=== PATIENT | female | born 1955 | race Caucasian/White ===

== ENCOUNTER → 2021-09-02 16:10 | Outpatient (CLI) | payer BC, SELFPAY ==
--- NOTE | 2021-09-02 16:17 | XR_ITS ---
PROCEDURE INFORMATION: Exam: XR Lumbosacral Spine Exam date and time: 09/02/2021 4:25 PM Age: 66 years old Clinical indication: Low back pain and sciatica; Left TECHNIQUE: Imaging protocol: XR of the lumbosacral spine. Views: 2 or 3 views. COMPARISON: No relevant prior studies available. FINDINGS: Bones/joints: There is no evidence of acute fracture.There is no evidence of malalignment or dislocation. Anterior bridging osteophytes L2 through L4. Intervertebral disc space narrowing L5/S1 consistent with degenerative disc disease.. Soft tissues: Unremarkable. IMPRESSION: 1. There is no evidence of acute fracture.There is no evidence of malalignment or dislocation. 2. Intervertebral disc space narrowing L5/S1 consistent with degenerative disc disease..
--- NOTE | 2021-09-02 16:17 | XR_ITS ---
PROCEDURE INFORMATION: Exam: XR Bilateral Sacroiliac Joints Exam date and time: 09/02/2021 4:25 PM Age: 66 years old Clinical indication: Pain; Lumbago; With sciatica; Left; Additional info: Low back pain TECHNIQUE: Imaging protocol: XR Bilateral XR of the sacroiliac joints. Views: 3 or more views. COMPARISON: No relevant prior studies available. FINDINGS: Bones/joints: Sclerosis and joint space narrowing in the sacroiliac joints consistent with degenerative changes. There is no evidence of acute fracture.There is no evidence of malalignment or dislocation. Soft tissues: Normal. IMPRESSION: 1. Sclerosis and joint space narrowing in the sacroiliac joints consistent with degenerative changes. 2. There is no evidence of acute fracture.There is no evidence of malalignment or dislocation.
== END ==
PROVIDERS: PCP Physician Assistant; Visit Provider Physician Assistant
DX: M54.50 Low back pain, unspecified (principal)
CPT/HCPCS: 72100; 72202

== ENCOUNTER 2025-02-23 12:48 | Outpatient (CLI) | payer MEDICARE, OTHER, SELFPAY ==
--- OUTSIDE RECORDS SUMMARY | 2025-02-06 09:00 | XMS_ITS | Encounter Summary ---
[facility] Organization [facility] Address [address] [place] [address] Care Team Providers Care Professional Model Name Role Phone Tabitha Collins Primary Care Provider [phone] Reason for Visit * Reason Comments Post-op Encounter Details Date Type Department Care Team (Late st Contact Info) Description 02/06/2025 10:00 AM EDT Office Visit [facility] [address] [phone] Darien Fleming MD [address] [place] [address] S/P lumbar discectomy (Primary Dx); Lumbar disc herniation with radiculopathy Social History Tobacco Use Types Packs/Day Years Used Date Smoking Tobacco: Never Passive Smoke Exposure: Never Smokeless Tobacco: Never Tobacco Cessation:Counseling Given: No Alcohol Use Standard Drinks/Week Comments Not Currently 0 (1 standard drink = 0.6 oz pur e alcohol) Abuse Screen Answer Date Recorded Feels Unsafe at Home or Work/School no 12/04/2024 Feels Threatened by Someone no 11/21 Does Anyone Try to Keep You From Having Contact with Others or Doing Things Outside Your Home? no 12/04/2024 Physical Signs of Abuse Present no 12/04/2024 Housing Stability Answer Date Recorded Current Living Arrangements home 11/21 Potentially Unsafe Housing Conditions Not on tisha e 12/04/2024 Disabilities Answer Date Recorded Difficulty Concentrating, Remembering or Making Decisions no 12/04/2024 Difficulty Managing Errands Independently no 12/04/2024 Education Answer Date Recorded Help with school or training? Not on file Preferred Language Swiss 11/28/2024 Comments No Sex and Gender Information Value Date Recorded Sex Assigned at Female 11/05/2024 10:24 AM EDT Legal Sex Female 12:49 PM EDT Gender Identity Not on file Sexual Orientation Not on file documented as of this encounter Last Filed Vital Signs Vital Sign Reading Time Taken Comments Blood Pressure - - Pulse - - Temperature 36.5 C (97.7 F) 02/06/2025 10:08 AM EDT Respiratory Rate - - Oxygen Saturation - - Inhaled Oxygen Concentration - - Weight 82.1 kg (181 lb 1.6 oz) 02/06/2025 10:08 AM EDT Height 157.5 cm (5' 2 ) 02/06/2025 10:08 AM EDT Body Mass Index 33.12 02/06/2025 10:08 AM EDT documented in this encounter Progress Notes * Darien Fleming MD - 02/06/2025 10:00 AM EDT Patient: Delilah Garcia : 1955 Primary Care Provider: Tabitha Collins PA Requesting Provider: As above History Chief Complaint: Left lower extremity pain. 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 She did very well. More recently she returned to our clinic with recurrent symptoms involving the back and left leg. Preoperative studies demonstrated recurrent disc herniation on the left at L5-S1. As such on 12/04/2024 she presented for redoleft L5-S1 discectomy. Her leg pain is absent. She harbors some very modest low back pain. She has been increasing her activity. Review of Systems Constitutional: Negative for activity change, appetite change, chills, diaphoresis, fatigue, fever and unexpected weight change. HENT: Negative for congestion, dental problem, drooling, ear discharge, ear pain, facial swelling, hearing loss, mouth sores, nosebleeds, postnasal drip, rhinorrhea, sinus pressure, sinus pain, sneezing, sore throat, tinnitus, trouble swallowing and voice change. Eyes: Negative for photophobia, pain, discharge, redness, itching and visual disturbance. Respiratory: Negative for apnea, cough, choking, chest tightness, shortness of breath, wheezing andstridor. Cardiovascular: Negative for chest pain, palpitations and leg swelling. Gastrointestinal: Negative for abdominal distention, abdominal pain, anal bleeding, blood in stool,constipation, diarrhea, nausea, rectal pain and vomiting. Endocrine: Negative for cold intolerance, heat intolerance, polydipsia, polyphagia and polyuria. Genitourinary: Negative for decreased urine volume, difficulty urinating, dysuria, enuresis, flank pain, frequency, genital sores, hematuria and urgency. Musculoskeletal: Negative for arthralgias, back pain, gait problem, joint swelling, myalgias, neck pain and neck stiffness. Skin: Negative for color change, pallor, rash and wound. Allergic/Immunologic: Negative for environmental allergies, food allergies and immunocompromised state. Neurological: Negative for dizziness, tremors, seizures, syncope, facial asymmetry, speech difficulty, weakness, light-headedness, numbness and headaches. Hematological: Negative for adenopathy. Does not bruise/bleed easily. Psychiatric/Behavioral: Negative for agitation, behavioral problems, confusion, decreased concentration, dysphoric mood, hallucinations, self-injury, sleep disturbance and suicidal ideas. The patientis not nervous/anxious and is not hyperactive. The patient's past medical history, past surgical history, family history, and social history have been reviewed at length in the electronic medical record. Physical Exam: Temp 97.7 ??F (36.5 ??C) (Temporal) Ht 157.5 cm (62 ) Wt 82.1 kg (181 lb 1.6 oz) BMI 33.12 kg/m?? Her incision looks great. She moves about in a spry fashion. Medical Decision Making Diagnosis: Recurrent left L5-S1 disc herniation. Treatment Options: Ms. Garcia is doing quite well. She will steadily increase her activity. She will follow-up with neurosurgery on an as needed basis. Scribed for Darien Fleming MD by Digna Garcia CMA on 02/06/2025 10:13 EDT I, Dr. Fleming, personally performed the services described in the documentation, as scribed in my presence, and it is both accurate and complete. documented in this encounter Plan of Treatment Not on file documented as of this encounter Visit Diagnoses Diagnosis S/P lumbar discectomy- Primary Other postprocedural status Lumbar disc herniation with radiculopathy Displacement of lumbar intervertebral disc without myelopathy documented in this encounter Care Teams Professional Model Relationship Specialty Start Date End Date Tabitha Collins PA [address] [facility] [place] [address] PCP - General Physician Analytical Chemist 10/08/24 documented as of this encounter
--- OUTSIDE RECORDS SUMMARY | 2025-02-17 07:05 | XMS_ITS | Encounter Summary ---
Author Organization [facility] Address [address] [place] [address] Care Team Providers Care Orchid Hand Name Role Phone Malaika Crenshaw Primary Care Provider [phone] Encounter Details Date Type Department Care Team (Late st Contact Info) Description 02/17/2025 8:05 AM EDT Ancillary Procedure [facility] [address] [place] [address] Social History Tobacco Use Types Packs/Day Years Used Date Smoking Tobacco: Never Passive Smoke Exposure: Never Smokeless Tobacco: Never Comments Unknown Sex and Gender Information Value Date Recorded Sex Assigned at Not on file Legal Sex Female 6:55 PM EDT Gender Identity Not on file Sexual Orientation Not on file documented as of this encounter Plan of Treatment Upcoming Encounters Date Type Department Care Team (Late st Contact Info) Description 08/18/2025 8:00 AM EDT Office Visit [facility] [address] [place] [phone] Mikel Hays MD [address] [address] documented as of this encounter Procedures Procedure Name Priority Date/Time Associated Diagnosis Comments AUTOMATED VISUAL FIELD, EXTENDED - OU - BOTH EYES Routine 02/17/2025 10:09 AM EDT Open angle with borderline findings, low risk, right eye documented in this encounter Results * Automated Visual Field, Extended - OU - Both Eyes (02/17/2025 10:09 AM EDT) Anatomical Region Laterality Modality Head Visual Field Narrative 02/17/2025 10:09 AM EDT Right Eye Threshold was 24-2. Strategy was FILIBERTO. Reliability was good. Findings include normal observations. Left Eye Threshold was 24-2. Strategy was FILIBERTO. Reliability was poor. Findings include normal observations, non-specific defects. Notes No evidence of glaucoma od; ? Os given reliability poor Mikel Hays MD OPH VISUAL FIELD Edited Resu lt - Final documented in this encounter Visit Diagnoses Not on filedocumented in this encounter Additional Health Concerns Assessment Noted Time A fall risk assessment has been complete d for the patient 02/17/2025 8:23 AM EDT A Body Mass Index follow-up plan has been documented for the patient 02/17/2025 10:18 AM EDT documented as of this encounter Care Teams Orchid Hand Relationship Specialty Start Date End Date Malaika Crenshaw PA [address] [place] [address] PCP - General 07/04/23 documented as of this encounter
--- OUTSIDE RECORDS SUMMARY | 2025-02-17 07:15 | XMS_ITS | Encounter Summary ---
Author Organization [facility] Address [address] [place] [address] Care Team Providers Care Hogshead Press Operator Name Role Phone Malaika Crenshaw Primary Care Provider [phone] Encounter Details Date Type Department Care Team (Late st Contact Info) Description 02/17/2025 8:15 AM EDT Office Visit [facility] [address] [place] [address] Mikel Hays MD [address] [address] Open angle with borderline findings, low risk, right eye (Primary Dx); Open angle with borderline findings, high risk, left; Myopia of both eyes; Regular astigmatism of both eyes; Presbyopia of both eyes Social History Tobacco Use Types Packs/Day Years Used Date Smoking Tobacco: Never Passive Smoke Exposure: Never Smokeless Tobacco: Never Comments Unknown Sex and Gender Information Value Date Recorded Sex Assigned at Not on file Legal Sex Female 6:55 PM EDT Gender Identity Not on file Sexual Orientation Not on file documented as of this encounter Miscellaneous Notes * Progress Notes - Mikel Hays MD - 02/17/2025 8:15 AM EDT Subjective HPI 69 yo f presents in clinic for a 6 month follow up for a VF 24-2, with a Hx of; Open angle with borderline findings, low risk, right eye Open angle with borderline findings, high risk, left Pt states vision is the OS is a little off, I am not for sure if something has changed with my glasses and it is a little different, blurry Pt notes she noticed the blurriness for the past couple of months. Pt denies pain, flashes and floaters, irritation (only time she notes irritation is when she is using the Duc an tonight) Drop compliant os--needs new Rx Last edited by Mikel Hays MD on 02/17/2025 10:13 AM. ROS Positive for: Eyes Negative for: Constitutional, Gastrointestinal, Neurological, Skin, Genitourinary, Musculoskeletal,HENT, Endocrine, Cardiovascular, Respiratory, Psychiatric, Allergic/Imm, Heme/Lymph Last edited by Chevy Mckeon on 02/17/2025 8:15 AM. Objective Base Eye Exam Visual Acuity (Snellen - Linear) Right Left Dist cc 20/20 -1 20/20 Correction: Glasses Tonometry (Goldmann Applanation, 8:45 AM) Right Left Pressure 16 17 Pupils Pupils APD Right PERRL None Left PERRL None Neuro/Psych Oriented x3: Yes Mood/Affect: Normal Slit Lamp and Fundus Exam External Exam Right Left External Normal Normal Slit Lamp Exam Right Left Lids/Lashes Normal for age Normal for age Conjunctiva/Sclera Normal Normal Cornea Clear and compact Clear and compact Anterior Chamber Deep and quiet Deep and quiet Iris Normal pupil size and shape Normal pupil size and shape Lens pigment on AC pigment on AC Vitreous Normal Normal Fundus Exam Right Left Disc No edema; no vascularization; good color (Lorenzo 78 d Lens) No edema; no vascularization; good color (Lorenzo 78 d Lens) C/D Ratio 0.4 0.55 Macula Normal reflex; without edema Normal reflex; without edema Vessels Perfused; no tortuosity or abnormality Perfused; no tortuosity or abnormality Refraction Wearing Rx Sphere Cylinder Lorraine Add Right -0.25 +0.25 178 +2.25 Left -0.75 +0.75 010 Age: 4yrs Type: PAL Manifest Refraction Sphere Cylinder Lorraine Dist VA Add Near VA Right -0.50 +0.50 015 20/20 +2.00 20/20 Left -1.00 +0.75 015 20/20 +2.00 20/20 Final Rx Sphere Cylinder Lorraine Dist VA Add Near VA Right -0.50 +0.50 015 20/20 +2.00 20/20 Left -1.00 +0.75 015 20/20 +2.00 20/20 Expiration Date: 02/17/2026 Assessment/Plan Assessment & Plan Open angle with borderline findings, low risk, right eye Orders: Automated Visual Field, Extended - OU - Both Eyes Open angle with borderline findings, high risk, left Myopia of both eyes Regular astigmatism of both eyes Presbyopia of both eyes Stable IOPs; continue timolol 0.5% bid os Disp spec Rx Rtc 6 mos ar/gl/mr/oct rnfl ou documented in this encounter Plan of Treatment Upcoming Encounters Date Type Department Care Team (Late st Contact Info) Description 08/18/2025 8:00 AM EDT Office Visit [facility] [address] [place] [address] Mikel Hays MD [address] [address] documented as of this encounter [...] Os given reliability poor Mikel Hays MD OPHTH VISUAL FIELD Edited Resu lt - Final documented in this encounter Visit Diagnoses Diagnosis Open angle with borderline findings, low risk, right eye- Primary Open angle with borderline findings, high risk, left Myopia of both eyes Regular astigmatism of both eyes Presbyopia of both eyes documented in this encounter Additional Health Concerns Assessment Noted Time A fall risk assessment has been complete d for the patient 02/17/2025 8:23 AM EDT A Body Mass Index follow-up plan has been documented for the patient 02/17/2025 10:18 AM EDT documented as of this encounter Care Teams Hogshead Press Operator Relationship Specialty Start Date End Date Malaika Crenshaw PA [address] [place] [address] PCP - General 07/04/23 documented as of this encounter
--- OUTSIDE RECORDS SUMMARY | 2025-02-17 09:58 | XMS_ITS | Encounter Summary ---
Author Organization [facility] Address [address] [place] [address] Care Team Providers Care Web Weaver Name Role Phone Tabitha Collins Primary Care Provider [phone] Reason for Referral * Diagnostic Imaging (Routine) - Closed Specialty Diagnoses / Procedures Referred By Contac t Referred To Contact Radiology Diagnoses Encounter for screening mammogram for breast cancer Procedures Mammo Screening Digital Tomosynthesis Bilateral With Tabitha Moody PA [address] [place] [phone] Phone: tel: fax: [address] [address] [place] [address] Phone: tel: Referral ID Status Reason Start Date Expiration Date Visits Re quested Visits Authorized [id number] Closed 12/02/2024 03/03/2026 1 1 Reason for Visit * Diagnostic Imaging (Routine) - Closed Specialty Diagnoses / Procedures Referred By Contac t Referred To Contact Radiology Diagnoses Encounter for screening mammogram for breast cancer Procedures Mammo Screening Digital Tomosynthesis Bilateral With Tabitha Moody PA [address] [place] [address] Phone: tel: fax: [facility] [address] [place] [phone] Phone: tel: Referral ID Status Reason Start Date Expiration Date Visits Re quested Visits Authorized [id number] Closed 12/02/2024 03/03/2026 1 1 Encounter Details Date Type Department Care Team (Latest Contact Info) Description 02/17/2025 10:58 AM EDT - 02/17/2025 11:59 PM EDT Hospital Encounter [address] [place] [address] Tabitha Collins PA [address] [place] [address] Encounter for screening mammogram for breast cancer Discharge Disposition: Home or Self Care Social History Tobacco Use Types Packs/Day Years Used Date Smoking Tobacco: Never Passive Smoke Exposure: Never Smokeless Tobacco: Never Alcohol Use Standard Drinks/Week Comments Not Currently [...] or training? Not on file Preferred Language Serbian 11/28/2024 Comments No Sex and Gender Information Value Date Recorded Sex Assigned at Female 11/05/2024 10:24 AM EDT Legal Sex Female 12:49 PM EDT Gender Identity Not on file Sexual Orientation Not on file documented as of this encounter Medications at Time of Discharge cetirizine (zyrTEC) 10 MG tablet Take 1 tablet by mouth Daily. desonide (DESOWEN) 0.05 % cream Apply 1 Application topically to the appropriate area as directed 2 (Two) Times a Day As Needed for Irritation. estradiol (MINIVELLE, VIVELLE-DOT) 0.05 MG/24HR patch Place 1 patch on the skin as directed by provider 1 (One) Time Per Week. Sunday08/04/2019 lisinopril (PRINIVIL,ZESTRI L) 10 MG tablet Take 1 tablet by mouth Daily. metoprolol succinate XL (TOPROL-XL) 50 MG 24 hr tablet Take 1 tablet by mouth Daily. 07/10/2019 simvastatin (ZOCOR) 40 MG tablet Take 1 tablet by mouth Every Night. 10/04/2019 timolol (TIMOPTIC) 0.5 % ophthalmic solution Administer 1 drop into the left eye 2 (Two) Times a Day. triamterene-hydr ochlorothiazide (MAXZIDE-25) 37.5-25 MG per tablet Take 1 tablet by mouth Daily. 07/28/2019 Wixela Inhub 250-50 MCG/ACT DISKUS 11/27/2024 documented as of this encounter Plan of Treatment Not on file documented as of this encounter Procedures Procedure Name Priority Date/Time Associated Diagnosis Comments MAMMO SCREENING DIGITAL TOMOSYNTHESIS BILATERAL W CAD Routine 02/17/2025 11:17 AM EDT Encounter for screening mammogram for breast cancer documented in this encounter Results * Mammo Screening Digital Tomosynthesis Bilateral With CAD (02/17/2025 11:17 AM EDT) Anatomical Region Laterality Modality Breast N/A Mammography 02/20/2025 8:47 AM EDT Impressions 02/20/2025 8:50 AM EDT No mammographic findings suspicious for malignancy. RECOMMENDATION: Continue annual screening mammography. BI-RADS CATEGORY 1, NEGATIVE. CAD was utilized. The standard false-negative rate of mammography is between 10% and 25%. Complex patterns or increased breast density will markedly elevate the false-negative rate of mammography. A letter, in lay terminology, with the results of this exam will be mailed to the patient. 02/20/2025 8:[address] Ana M Mcgowan MD on Narrative 02/20/2025 8:50 AM EDT BILATERAL SCREENING MAMMOGRAM WITH TOMOSYNTHESIS: HISTORY: The patient has no personal history or significant family history of breast cancer and no focal breast complaints at the time of screening mammography. TECHNIQUE: Bilateral CC and MLO low dose, full field digital mammographic images were obtained with tomosynthesis. COMPARISON: 02/12/2024, 12/22/2022, 12/21/2021, 11/02/2020, 10/20/2019, 09/25/2019, 06/10/2018 FINDINGS: There are scattered areas of fibroglandular density. The fibroglandular pattern is stable. There are no suspicious masses, worrisome calcifications, nonsurgical areas of architectural distortion, or other secondary signs of malignancy. Tabitha [facility] MAMMOGRAPHY ORDERABLES Final Result documented in this encounter Visit Diagnoses Diagnosis Encounter for screening mammogram for breast cancer documented in this encounter Care Teams Web Weaver Relationship Specialty Start Date End Date Tabitha Collins PA [address] [place] [address] PCP - General Physician Graduate Research Assistant 10/08/24 documented as of this encounter
--- NOTE | 2025-02-23 12:53 | XR_ITS ---
FINAL REPORT TECHNIQUE: Bone densitometry calculations of the lumbar spine and bilateral hips were obtained. CLINICAL HISTORY: SCREENING COMPARISON: None FINDINGS: Using L1-4, the bone mineral density of the spine is 0.966 g/cm2, corresponding to T-score of 0.2 and a Z score of 1.6. This is within the range of normal. Using the left hip, the bone mineral density of the femoral neck is 0.966 g/cm2, corresponding to a T-score of 0.2 and a Z-score of 1.6. This is within the range of normal. Using the right hip, the bone mineral density of the femoral neck is 0.766 g/cm?, corresponding to a T-score of -0.8 and a Z-score of 0.9. This is within the range of normal. NOTE: T-score: Standard deviation compared with peak bone mass of young adult mean. *Following the recommendations of the International Society of Bone densitometry, classification of hip BMD is based on the lower of two T-scores; total hip or femoral neck. IMPRESSION: 1. Bone mineral density of the lumbar spine within the range of normal. 2. Bone mineral density of the bilateral femoral necks within the range of normal. Reviewed, Interpreted and Dictated by Darlene Wyatt MD Transcribed by Manju Rivera Authenticated and [facility]
--- OUTSIDE RECORDS SUMMARY | 2025-02-23 12:53 | XMS_ITS | Continuity of Care Document ---
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 Plan of Treatment Reminders Order Date Submit Date Provider Last Modified By Organization Details Last Modified Time Details Appointments None record ed. Lab None record ed. Referral None record ed. Procedures None record ed. Surgeries None record ed. Imaging None record ed. Medication Orders None record ed. Patient TargetsNo targets recorded. Patient InstructionsNo instructions recorded. Reason for Referral None Reported. Results Created Date Observation Date Name Description Value Unit Range Abnormal Flag Note LastModifiedBy Organization Detail LastModifiedTime 02/21/2002/17/2025 MAMMO , scree le, bilat eral No observ ation record ed. [facility] [address], [place], [address], 02/20/2025 09:32:34 Result Notes None recorded. Problems Name Problem SNOMED Code Status Onset Date Resolution Date Notes Provider Name and Address Organization Details Recorded Time Mixed hyperlip idemia 654186581 Active 2020 Problem Code: E78.2; Problem Code Type: ICD-10; Not Available [facility] 22:03:49 Menopaus e present 173093449 Active 2020 Problem Code: N95.1; Problem Code Type: ICD-10; Not Available [employer] 22:03:49 Syncope and collapse 528571602 Completed 202003/22/2021 Problem Code: R55; Problem Code Type: ICD-10; Not Available [facility] 22:03:49 Hyperten sive disorder 18105574 Active 2020 Problem Code: I10; Problem Code Type: ICD-10; Not Available [facility] 2 22:03:49 Inflamma tion of sacroili ac joint 33846561 Active 2021 Problem Code: M46.1; Problem Code Type: ICD-10; Not Available [facility] 2 22:03:49 Body mass index 30+ - obesity 563375199 Active 2021 Problem Code: Z68.30; Problem Code Type: ICD-10; Not Available [facility] 22:03:50 Left side sciatica 39104051142 9104 Active 2021 Problem Code: M54.32; Problem Code Type: ICD-10; Not Available [facility] 22:03:49 Low back pain 375284727 Active 2021 Problem Code: M54.5; Problem Code Type: ICD-10; Not Available [facility] 22:03:49 Prolapse d lumbar interver tebral disc 755417105 Active 2024 YEE Mccabe [address] [place] [address], [address] , [employer] 5 11:10:30 Allergic rhinitis caused by pollen 89367489 Active 2024 YEE Mccabe [address] [place] [address], [phone] , [employer] 11:23:03 Atopic dermatit is 07012970 Active 2024 YEE Mccabe [address] [place] [address], [phone] , [employer] 5 11:23:28 Hypergly cemia 70912469 Active 2024 YEE Mccabe [address] [place] [address], [address] , [employer] 5 10:04:53 Type 2 diabetes mellitus 60223792 Active 2024 YEE Mccabe [address] [place], [address] , [employer] 5 11:38:19 Candidal vulvovag initis 94208743 Active 2024 YEE Mccabe [address] [place], [address] , [employer] 5 13:10:52 Problem Notes None recorded. Procedures Surgical History Date Name Laterality Status Provider Name and Address Organization Details Recorded Time 12/05/19 discectomy of spine completed [facility] 12/25/2024 10:42:50 primary lumbar discectomy completed [facility] [employer] 01/04/2022 12:25:26 section completed [facility] 09/25/2024 10:47:54 section completed [facility] 09/25/2024 10:47:58 Tubal Ligation completed [facility] 12/25/2024 10:42:59 right oophorectomy completed [facility] 09/25/2024 10:48:10 Total Hysterectomy completed [facility] 09/25/2024 10:48:17 Imaging Results None recorded. Procedure Notes None recorded. Medical Equipment None Reported. Allergies Allergen ID Allergen Name Allergen Category Reaction Reaction Severity Criticality Documentation Date Start Date Code Code System Note Provider Name and Address Organization Details Recorded Time 26982 Cipro medicatio n Not available Not available Not available 12/27/202110575 3 RxNorm Not Available [facility] 2 22:57:18 08666 oxycodone medicatio n Not available Not available Not available 01/05/2023 7804 RxNorm Brenna engel [employer] 3 08:30:07 Medications Name Sig Start Date Stop Date Status Note LastModified by Organization Details LastModified Time cyclobenzap rine 10 mg tablet TAKE 1 TABLET BY MOUTH THREE TIMES DAILY 12/25 completed Not Available Not Available Not Available promethazin e-DM 6.25 mg-15 mg/5 mL oral syrup TAKE 5-7.5 ML BY MOUTH EVERY 4-6 HOURS NEEDED FOR COUGH 08/29 completed Not Available Not Available Not Available prednisone 10 mg tablet TAKE 6 TABLETS BY MOUTH ONCE DAILY FOR 2 DAYS, THEN DECREASE BY 10 MG EVERY OTHER DAY 09/25 completed Not Available Not Available Not Available albuterol sulfate 2.5 mg/3 mL (0.083 %) solution for nebulizatio n Inhale 3 mL every 4-6 hours by nebulizat ion route as needed. active Not Available Not Available No t Available trazodone 50 mg tablet TAKE 1 TABLET(50 MG) BY MOUTH AT NIGHT FOR SLEEP 08/29 completed Not Available Not Available Not Available cetirizine 10 mg tablet TAKE 1 TABLET BY MOUTH ONCE DAILY active Not Available Not Available No t Available azithromyci n 250 mg tablet TAKE 2 TABLETS (500 MG) BY ORAL ROUTE ONCE DAILY FOR 1 DAY THEN 1 TABLET (250 MG) BY ORAL ROUTE ONCE DAILY FOR 4 DAYS 03/18 completed Not Available Not Available Not Available fluconazole 150 mg tablet TAKE 1 TABLET BY MOUTH ONCE DAILY NEEDED FOR 1 DAY 12/25 completed Not Available Not Available Not Available metoprolol succinate ER 50 mg tablet,exte nded release 24 hr Take 1 tablet every day by oral route. 2024 active Not Available Not Available Not Avai lable clarithromy aiyana 500 mg tablet TAKE 1 TABLET BY MOUTH EVERY 12 HOURS FOR 10 DAYS 08/24 completed Not Available Not Available Not Available fluconazole 200 mg tablet Take 1 tablet every day by oral route for 3 days. 09/25 completed Not Available Not Available Not Available prednisone 20 mg tablet TAKE 1 TABLET BY MOUTH THREE TIMES DAILY FOR 3 DAYS, THEN 1 TWICE DAILY FOR 3 DAYS, THEN 1 ONCE DAILY FOR 3 DAYS DIRECTED 10/09 completed Not Available Not Available Not Available fluorouraci l 5 % topical cream APPLY A THIN LAYER TO THE AFFECTED AREA BY TOPICAL ROUTE 2 TIMES PER DAYS FOR 14-28 DAYS. 12/25 completed Not Available Not Available Not Available Pyridium 200 mg tablet Take 1 tablet 3 times a day by oral route for 3 days, for urinary discomfor t. 08/28 completed Not Available Not Available Not Available simvastatin 40 mg tablet TAKE 1 TABLET BY MOUTH EVERY DAY at bedtime 2024 active Not Available Not Available Not Avai lable prednisone 10 mg tablets in a dose pack TAKE 6 TABLETS ON DAY 1 DIRECTED ON PACKAGE AND DECREASE BY 1 TAB EACH DAY FOR A TOTAL OF 6 DAYS 08/24 completed Not Available Not Available Not Available oxycodone-a cetaminophe n 5 mg-325 mg tablet TAKE 1 TABLET BY MOUTH THREE TIMES DAILY NEEDED FOR PAIN 01/09 completed Not Available Not Available Not Available methocarbam ol 750 mg tablet take 1 tablet (750 mg) by oral route 3 times per day prn muscle spasm 01/04 completed Not Available Not Available Not Available desonide 0.05 % topical ointment APPLY OINTMENT TOPICALLY SPARINGLY AND RUB GENTLY INTO AFFECTED AREA(S) TWICE DAILY active Not Available Not Available No t Available benzonatate 100 mg capsule TAKE 1 CAPSULE BY MOUTH THREE TIMES A DAY 08/25 completed Not Available Not Available Not Available triamcinolo ne acetonide 40 mg/mL suspension for injection Take 1 mL as needed by injection route. 10/09 completed Not Available Not Available Not Available cephalexin 500 mg capsule TAKE 1 CAPSULE BY MOUTH THREE TIMES A DAY FOR 10 DAYS 08/29 completed Not Available Not Available Not Available oseltamivir 75 mg capsule TAKE 1 CAPSULE BY MOUTH TWICE A DAY FOR 5 DAYS 08/01 completed Not Available Not Available Not Available lisinopril 10 mg tablet Take 1 tablet every day by oral route for 90 days. 2024 active Not Available Not Available Not Avai lable gabapentin 300 mg capsule TAKE 1 CAPSULE BY MOUTH THREE TIMES DAILY 12/25 completed Not Available Not Available Not Available triamterene 37.5 mg-hydrochl orothiazide 25 mg tablet Take 1 tablet(s) every day by oral route for 90 days. 2024 active Not Available Not Available Not Avai lable cephalexin 500 mg tablet Take 1 tablet 3 times a day by oral route for 10 days. 08/29 completed Not Available Not Available Not Available hydrocortis one 2.5 % topical cream APPLY TOPICALLY TO THE AFFECTED AREA ON FACE TWICE DAILY FOR 3 TO 5 DAYS 09/25 completed Not Available Not Available Not Available mupirocin 2 % topical ointment APPLY TO INSIDE OF EACH NOSTRIL WITH A COTTON SWAB TWICE DAILY FOR 5 DAYS BEFORE SURGERY 01/04 completed Not Available Not Available Not Available levofloxaci n 500 mg tablet 08/25 completed Not Available Not Available Not Available albuterol sulfate HFA 90 mcg/actuati on aerosol inhaler INHALE 2 PUFFS INTO THE LUNGS EVERY 4 HOURS NEEDED 09/25 completed Not Available Not Available Not Available timolol maleate 0.5 % eye drops INSTILL 1 DROP INTO LEFT EYE TWICE DAILY active Not Available Not Available No t Available ketoconazol e 2 % topical cream APPLY TO AFFECTED AREA TWICE A DAY NEEDED FOR FLARES 09/25 completed Not Available Not Available Not Available Hibiclens 4 % topical liquid USE DIRECTED TO SHOWER EACH DAY FOR 5 DAYS BEFORE SURGERY 01/04 completed Not Available Not Available Not Available calcipotrie ne 0.005 % topical ointment PLEASE SEE ATTACHED FOR DETAILED DIRECTION S 09/25 completed Not Available Not Available Not Available metoprolol tartrate 25 mg tablet take 1 tablet (25 mg) by oral route 2 times per day 08/29 completed Not Available Not Available Not Available nitrofurant oin monohydrate /macrocryst als 100 mg capsule Take 1 capsule every 12 hours by oral route for 7 days. 09/25 completed Not Available Not Available Not Available pregabalin 50 mg capsule TAKE 1 CAPSULE BY MOUTH TWICE DAILY 12/25 completed Not Available Not Available Not Available triamterene 03/22 completed Not Available Not Available Not Available Gavilyte-C 240 gram-22.72 gram-6.72 gram-5.84 gram oral solution TAKE DIRECTED 02/18 completed Not Available Not Available Not Available Accu-Chek Guide test strips USE DIRECTED TWICE DAILY active Not Available Not Available No t Available Wixela Inhub 250 mcg-50 mcg/dose powder for inhalation INHALE 1 PUFF BY MOUTH TWICE A DAY 12/25 completed Not Available Not Available Not Available Accu-Chek Guide Me Glucose Meter USE DIRECTED active Not Available Not Available No t Available Lyllana 0.05 mg/24 hr transdermal patch APPLY 1 PATCH TOPICALLY TWICE WEEKLY DIRECTED active Not Available Not Available No t Available COVID-19 At-Home Test kit FOLLOW INSTRUCTI ONS INCLUDED WITH THE PACKAGE. 08/01 completed Not Available Not Available Not Available Vitals None Recorded Social History Question Answer Notes LastModified by Organizat ion Details LastModified Time Tobacco Smoking Status Never Smoker SocialMi Deo reg: 'Tobacco /Alcohol /Supplem ents'; Mi Linh guaman: 'Never Smoker'; Not Available [facility] 12/27/2021 23:00:07 Do You Have An Advance Directive? No [email or web address] Information not available 01/05/2023 Is Your Home Air Conditioned? Yes Information not available 01/05/2023 Are You Blind Or Do You Have Difficulty Seeing? No Information not available 01/04/2022 What Is Your Level Of Caffeine Consumption? Occasional Information not available 08/01/2022 What Type Of Social Sciences Research Scientist Do You Use? None Information not available 08/01/2022 In The 14 Days Before Symptom Onset, Have You Had Close Contact With A Laboratory-confi rmed COVID-19 While That Case Was Ill? No Information not available 08/01/2022 In The 14 Days Before Symptom Onset, Have You Had Close Contact With A Person Who Is Under Investigation For COVID-19 While That Person Was Ill? No Information not available 08/01/2022 Have You Been To An Area Known To Be High Risk For COVID-19? No Information not available 08/01/2022 Are You Deaf Or Do You Have Serious Difficulty Hearing? No Information not available 01/04/2022 What Type Of Diet Are You Following? REGULAR Information not available 01/04/2022 Who Is Your Employer? [employer] Information not available 01/04/2022 Have There Been Any Changes To Your Family Or Social Situation? No Information not available 08/01/2022 Are There Any Guns Present In Your Home? No [email or web address] Information not available 01/05/2023 Which Of Your Hands Is Dominant? Right Information not available 09/25/2024 Do You Have A Medical Power Of Telephone Diaphragm Assembler? No [email or web address] Information not available 01/05/2023 What Was The Date Of Your Most Recent Tobacco Screening? 12/25/2024 Information not available 12/25/2024 Do You Have Any Pets? No Information not available 01/05/2023 What Is Your Relationship Status? Information not available 01/04/2022 Do You Use Your Seat Belt Or Car Seat Routinely? Yes Information not available 01/04/2022 Do You Have Smoke And Carbon Monoxide Detectors In Your Home? Yes [email or web address] Information not available 01/05/2023 Are You Passively Exposed To Smoke? No Information not available 08/01/2022 Are There Any Smokers In Your House? No Information not available 08/24/2022 Do You Participate In Social Media? Yes Information not available 08/24/2022 Do You Use Sunscreen Routinely? Yes Information not available 01/09/2022 Has Tobacco Cessation Counseling Been Provided? No Information not available 08/01/2022 Have You Recently Traveled Abroad? No Information not available 08/01/2022 Do You Have Difficulty Walking Or Climbing Stairs? No Information not available 01/04/2022 Are You Currently In School? No Information not available 01/09/2022 What Contraceptive Method Was Reported At Start Of This Visit? Female Sterilization Information not available 10/09/2024 Do You Have Any Dietary Restrictions? No Information not available 08/24/2022 Sex: Female Functional Status Question Answer Note LastModified by Organizat ion Details LastModified Time Do you use any illicit or recreational drugs? No Information not available 01/04/2022 Do you or have you ever used any other forms of tobacco or nicotine? No Information not available 01/04/2022 What is your level of alcohol consumption? None Information not available 01/04/2022 Are you currently employed? No Retired Information not available 10/09/2024 Do you have transportation difficulties? No Information not available 08/01/2022 Are you able to walk independently without assistance or assistive devices? YESWOREST Information not available 01/04/2022 Do you have difficulty doing errands alone? No Information not available 01/04/2022 Are you able to care for yourself independently? 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 No Information not available 01/04/2022 Mental Status Question Answer Note LastModified by Organizat ion Details LastModified Time Do you feel stressed (tense, restless, nervous, or anxious, or unable to sleep at night)? [id number] [email or web address] Information not available 01/09/2022 Do you have difficulty concentrating, remembering or making decisions? No Negotiantandbowling Information n ot available 01/04/2022 Family History Relationship Description Onset Age of this Age Resolved Age Notes LastModified by Organization Details LastModified Time Unspecified Relation Family history of Hypertension Relati ve: ''; [email or web address] Not available 12/27/2021 22:59:49 Medical History Condition Response Allergies/Hayfever Y Hypertension Y Asthma Y Gynecological History Statement/Question Response Menses Monthly N Date of Last Pap Smear Current Control Method Hysterectom y Most Recent Mammogram Obstetrics History GPAL:G 2 P 2 0 0 2 Type Value Multiple Births 0 Full Term 2 Induced 0 Spontaneous 0 Premature 0 Living 2 Ectopics 0 Total 2 Immunizations Vaccine Type Date Status Note Provider Nam e and Address Organization Details Recorded Time Influenza, split virus, quadrivalent, PF 2 completed Rayna engel [employer]. 02/08/2022 15:16:44 Influenza, split virus, trivalent, preservative 4 completed Malaika Jean-Baptiste PA-C [address] [place], [address], [employer] 02/08/2024 09:02:03 COVID-19, mRNA, LNP-S, PF, 100 mcg/0.5mL dose or 50 mcg/0.25mL dose 1 completed Laurence engel, [employer] 04/05/2022 09:09:14 COVID-19, mRNA, LNP-S, PF, 100 mcg/0.5mL dose or 50 mcg/0.25mL dose 1 completed Laurence engel, [employer] 04/05/2022 09:09:14 Hep A, adult 8 completed Laurence Best null, [employer] 04/05/2022 09:09:14 Hep A, adult 9 completed Laurence Best null, [employer] 04/05/2022 09:09:14 COVID-19, mRNA, LNP-S, PF, 100 mcg/0.5mL dose or 50 mcg/0.25mL dose 1 completed Laurence engel, [employer] 04/05/2022 09:09:14 Influenza, split virus, quadrivalent, PF 0 completed Laurence Best null, [employer] 04/05/2022 09:09:14 Influenza, split virus, quadrivalent, PF 9 completed Laurence Best null, [employer] 04/05/2022 09:09:14 Tdap 5 completed Marisa Vice null, [employer] 12/25/2024 15:01:24 zoster recombinant 5 completed Marisa Vice null, [employer] 12/25/2024 15:01:24 Pneumococcal conjugate PCV21, polysaccharide [id number] conjugate, PF 5 completed Marisa Vice null, [employer] 12/25/2024 15:01:25 Influenza, high-dose, trivalent, PF 5 completed Maria Antonia Sanchez [facility] MD - [place] [employer] [facility] 02/13/2025 11:56:36 Influenza, split virus, quadrivalent, PF 3 completed Not Available [employer] 02/13/2025 11:44:21 Past Encounters Encounter ID Performer Location Encounter Start Date Encounter Closed Date Diagnosis/Indication Diagnosis SNOMED-CT Code Diagnosis ICD10 Code Diagnosis IMO Codes Diagnosis Note [id number] YEE Mccabe [facility] [address] [place] [address] 02/13/2025 11:43:15 02/13/2025 11:55:29 Requires influenza virus vaccination [id number] [id number] Health Concerns Section Related Observation LastModified by Organization Detai ls LastModified Time None Recorded Concern Status LastModified by Organization Details LastModified Time None Recorded Payers Encounter Date Sequence Insurance Name Policy Number Policy Wyman Covered Member ID Wyman Member ID Guarantor Name 02/13/2025 2 [facility] (MEDICARE SUPPLEMENT) Delilah Garcia [id number] Delilah Garcia 02/13/2025 1 [place] Delilah Garcia [id number] Delilah Garcia OBGyn Episode No OBEpisode recorded.
--- OUTSIDE RECORDS SUMMARY | 2025-02-23 12:53 | XMS_ITS | Continuity of Care Document ---
Author Organization [place] [facility] [employer] [employer] [facility] Address [address] [place] [address] Care Team Providers Care Family Law Specialist Name Role Phone MALAIKA JEAN-BAPTISTE Primary Care Provider Unavailab le Assessment No assessment recorded. Plan of Treatment Reminders Order Date Submit Date Provider Last Modified By Organization Details Last Modified Time Details Appointments None recorded. Lab None recorded. Referral None recorded. Procedures None recorded. Surgeries None recorded. Imaging DEXA, axial skeleton + vertebral fracture assessment [address] ([facility]), [address], [place], [address], 11:10:34 Medication Orders simvastatin 40 mg tablet 2024 025 [facility], [facility] [address] [place], [address], 13:18:23 lisinopril 10 mg tablet 2024 025 [facility], [address] [place], [address], 13:18:20 metoprolol succinate ER 50 mg tablet,exte nded release 24 hr 2024 025 [facility], [address] [place], [address], 13:18:21 triamterene 37.5 mg-hydrochl orothiazide 25 mg tablet 2024 025 [facility], [address] [facility], [place], [address], 13:18:21 Patient TargetsNo targets recorded. Patient InstructionsNo instructions recorded. Reason for Referral None Reported. Results Created Date Observation Date Name Description Value Unit Range Abnormal Flag Note LastModifiedBy Organization Detail LastModifiedTime 02/21/2002/17/2025 MAMMO , scree le, bilat eral No observ ation record ed. [facility] [address] [facility], [place], [address], 02/20/2025 09:32:34 Result Notes None recorded. Problems Name Problem SNOMED Code Status Onset Date Resolution Date Notes Provider Name and Address Organization Details Recorded Time Mixed hyperlip idemia 888494757 Active 2020 Problem Code: E78.2; Problem Code Type: ICD-10; Not Available [facility] 22:03:49 Men[place]aus e present 813111365 Active 2020 Problem Code: N95.1; Problem Code Type: ICD-10; Not Available [facility] 22:03:49 Syncope and collapse 306144618 Completed 202003/22/2021 Problem Code: R55; Problem Code Type: ICD-10; Not Available [facility] 22:03:49 Hyperten sive disorder 52209345 Active 2020 Problem Code: I10; Problem Code Type: ICD-10; Not Available [facility] 22:03:49 Inflamma tion of sacroili ac joint 31528510 Active 2021 Problem Code: M46.1; Problem Code Type: ICD-10; Not Available [facility] 22:03:49 Body mass index 30+ - obesity 682527319 Active 2021 Problem Code: Z68.30; Problem Code Type: ICD-10; Not Available [facility] 22:03:50 Left side sciatica 68018246177 9104 Active 2021 Problem Code: M54.32; Problem Code Type: ICD-10; Not Available [facility] 2 22:03:49 Low back pain 920674537 Active 2021 Problem Code: M54.5; Problem Code Type: ICD-10; Not Available [facility] 2 22:03:49 Prolapse d lumbar interver tebral disc 876197203 Active [address] [place] [address], [address] [place] [address] , [employer] 11:10:30 Allergic rhinitis caused by pollen 03485074 Active [address] [place] [address], [address] [place] [address] , [employer] 11:23:03 Atopic dermatit is 10384483 Active [address] [place] [address], [address] [place] [address] , [employer] 11:23:28 Hypergly cemia 23182419 Active [address] [place] [address], [address] [place] [address] , [employer] 10:04:53 Type 2 diabetes mellitus 88891273 Active [address] [place] [address], [address] [place] [address] , [employer] 11:38:19 Candidal vulvovag initis 91786263 Active [address] [place] [address], [address] [place] [address] , [employer] 13:10:52 Problem Notes None recorded. Procedures Surgical History Date Name Laterality Status Provider Name and Address Organization Details Recorded Time 12/05/19 25 discectomy of spine completed Marisa Josue [employer] 12/25/2024 10:42:50 primary lumbar discectomy completed VAN BARNES [employer] 01/04/2022 12:25:26 section completed [employer] 09/25/2024 10:47:54 section completed [employer] 09/25/2024 10:47:58 Tubal Ligation completed [employer] 12/25/2024 10:42:59 right oophorectomy completed [employer] 09/25/2024 10:48:10 Total Hysterectomy completed [employer] 09/25/2024 10:48:17 Imaging Results None recorded. Procedure Notes None recorded. Medical Equipment None Reported. Allergies Allergen ID Allergen Name Allergen Category Reaction Reaction Severity Criticality Documentation Date Start Date Code Code System Note Provider Name and Address Organization Details Recorded Time 80684 Cipro medicatio n Not available Not available Not available 12/27/202154064 3 RxNorm Not Available [facility] 2 22:57:18 28224 oxycodone medicatio n Not available Not available Not available 01/05/2023 7804 RxNorm Brenna Arizmendi [facility] [employer] 3 08:30:07 Medications Name Sig Start [...] Not Available Not Available Not Available Vitals Date Recorded Body height Body mass index (BMI) Body weight Oxygen saturation Oxygen saturation in Arterial blood by Pulse oximetry Heart rate Body temperature Systolic And Diastolic Provider Name and Address Organization Details Last Updated DateTime 157.48 cm 33.4 kg/m2 91666.2 5 g 96 % 96 % 72 /min 98 [degF] 128/74 mm[Hg] Marisa Vice [employer] 10:39:23 Social History Question Answer Notes LastModified by Organizat ion Details LastModified Time Tobacco Smoking Status Never Smoker Patrick finney: 'Tobacco /Alcohol /Supplem ents'; Patrick guaman: 'Never Smoker'; Not Available [facility] 12/27/2021 23:00:07 Do You Have An Advance Directive? No [email or web address] Information not available 01/05/2023 Is Your Home Air Conditioned? Yes [email or web address] Information not available 01/05/2023 Are You Blind Or Do You Have Difficulty Seeing? No Information not available 01/04/2022 What Is Your Level Of Caffeine Consumption? Occasional Information not available 08/01/2022 What Type Of Round Up Ring Hand Do You Use? None Information not available [...] not available 01/04/2022 Who Is Your Employer? [employer] Information not available 01/04/2022 Have There Been Any Changes To Your Family Or Social Situation? No Information not available 08/01/2022 Are There Any Guns Present In Your Home? No Information not available 01/05/2023 Which Of Your Hands Is Dominant? Right Information not available 09/25/2024 Do You Have A Medical Power Of Configuration Consultant? No [email or web address] Information not available 01/05/2023 What Was The Date Of Your Most Recent Tobacco Screening? 12/25/2024 Information not available 12/25/2024 Do You Have Any Pets? No [email or web address] Information not available 01/05/2023 What Is Your Relationship Status? Information not available 01/04/2022 Do You Use Your Seat Belt Or Car Seat Routinely? Yes Information not available 01/04/2022 Do You Have Smoke And Carbon Monoxide Detectors In Your Home? Yes [email or web address] Information not available 01/05/2023 Are You Passively [...] you have difficulty doing errands alone? No [employer] Information not available 01/04/2022 Are you able to care for yourself independently? Yes Information not available 01/04/2022 What is your occupation? [employer] Information not available 01/09/2022 Do you have difficulty dressing, bathing, grooming, or toileting? No Information not available 01/04/2022 Mental Status Question Answer Note LastModified by Organizat ion Details LastModified Time Do you feel stressed (tense, restless, nervous, or anxious, or unable to sleep at night)? [id number] [employer] Information not available 01/09/2022 Do you have difficulty concentrating, remembering or making decisions? No [employer] Information n ot available 01/04/2022 Family History [...] split virus, quadrivalent, PF 2 completed Rayna engel, [employer] 02/08/2022 15:16:44 Influenza, split virus, trivalent, preservative 4 completed Malaika Jean-Baptiste PA-C [address] [place] [address], [id number], [employer] 02/08/2024 09:02:03 COVID-19, mRNA, LNP-S, PF, 100 mcg/0.5mL dose or 50 mcg/0.25mL dose 1 completed Laurence engel, [employer] 04/05/2022 09:09:14 COVID-19, mRNA, LNP-S, PF, 100 mcg/0.5mL dose or 50 mcg/0.25mL dose 1 completed Laurence Best null, [employer] 04/05/2022 09:09:14 Hep A, adult 8 completed Laurence Best null, [employer] 04/05/2022 09:09:14 Hep A, adult 9 completed Laurence eBst null, [employer] 04/05/2022 09:09:14 COVID-19, mRNA, LNP-S, PF, 100 mcg/0.5mL dose or 50 mcg/0.25mL dose 1 completed Laurence Best null, [employer] 04/05/2022 09:09:14 Influenza, split virus, quadrivalent, PF 0 completed Laurence Best null, [employer] 04/05/2022 09:09:14 Influenza, split virus, quadrivalent, PF 9 completed Laurence Best null, [employer] 04/05/2022 09:09:14 Tdap 5 completed Marisa Vice null, [employer] 12/25/2024 15:01:24 zoster recombinant 5 completed Marisa null, [employer] 12/25/2024 15:01:24 Pneumococcal conjugate PCV21, polysaccharide VCE445 conjugate, PF 5 completed Marisa Vice null, [employer] 12/25/2024 15:01:25 Influenza, high-dose, trivalent, PF 5 completed Maria Antonia engel, [employer] 02/13/2025 11:56:36 Influenza, split virus, quadrivalent, PF 3 completed Not Available [facility] 02/13/2025 11:44:21 Past Encounters Encounter ID Performer Location Encounter Start Date Encounter Closed Date Diagnosis/Indication Diagnosis SNOMED-CT Code Diagnosis ICD10 Code Diagnosis IMO Codes Diagnosis Note [id number] YEE Mccabe [facility] [address] [place] [address] 12/25/2024 10:26:51 12/25/2024 11:16:13 Postmenopausal state 88865685 Z78.0 392300 Requires d iphtheria, tetanus and pertussis vaccination 713341729 Z23 011297 Requires v aricella vaccination 768844564 Z23 669658 Requires v accination against Streptococcus pneumoniae 3588665145 Z23 056393 Hypertensive disorder 38 086972 I10 Mixed hyperlipidemia 267 283714 E78.2 Health Concerns Section Related Observation LastModified by Organization Detai ls LastModified Time None Recorded Concern Status LastModified by Organization Details LastModified Time None Recorded Payers Encounter Date Sequence Insurance Name Policy Number Policy Wyman Covered Member ID Wyman Member ID Guarantor Name 12/25/2024 2 [facility] (MEDICARE SUPPLEMENT) Delilah L Jose [id number] Delilah L Jose 12/25/2024 1 [place] Delilah L Jose [id number] Delilah L Jose Notes Date Note Type Note Provider Name and Address Organization Details Recorded Time 12/25/2024 text/html ROS as noted in the HPI Patient presents for followup.Histor y of HTN. Needs refills on Lisinopril.Rece ntly had lumbar surgery - is doing much better. Just released to start sitting up for 30 minutes at a time. Not taking any pain medicine.Has gained weight YEE Mccabe [address] [place] [address], [id number], [facility] [employer] 12/25/2024 13:18:35 OBGyn Episode No OBEpisode recorded.
--- OUTSIDE RECORDS SUMMARY | 2025-02-23 12:53 | XMS_ITS | Encounter Summary ---
Author Organization [facility] Address [address] [place] [address] Care Team Providers Care Physical Laboratory Assistant Name Role Phone Malaika Crenshaw Primary Care Provider [phone] Reason for Visit * Reason Comments Med Refill Encounter Details Date Type Department Care Team (Late Contact Info) Description 12/21/2023 Refill [facility] [address] [place] [address] Mikel Hays MD [address] [facility] [address] [address] Social History Tobacco Use Types Packs/Day [...] Encounters Date Type Department Care Team (Late Contact Info) Description 08/18/2025 8:00 AM EDT Office Visit [facility] [address] [place] [address] Mikel Hays MD [address] [facility] [address] [place] [address] [place] [phone] documented as of this encounter Visit Diagnoses Not on filedocumented in this encounter Additional Health Concerns Assessment Noted Time A fall risk assessment has been complete d for the patient 08/08/2023 8:12 AM EDT A Body Mass Index follow-up plan has been documented for the patient 08/08/2023 8:45 AM EDT documented as of this encounter Care Teams Physical Laboratory Assistant Relationship Specialty Start Date End Date Malaika Crenshaw PA [address] [place], [place] [id number] PCP - General 07/04/23 documented as of this encounter
--- OUTSIDE RECORDS SUMMARY | 2025-02-23 12:53 | XMS_ITS | Encounter Summary ---
Author Organization [facility] Address [address] [place] [address] Care Team Providers Care Kennel Hand Name Role Phone Tabitha Collins Primary Care Provider [phone] Encounter Details Date Type Department Care Team (Latest Contact Info) Description 02/06/2025 Travel Social History Tobacco Use Types Packs/Day Years [...] or training? Not on file Preferred Language Sinhala 11/28/2024 Comments No Sex and Gender Information Value Date Recorded Sex Assigned at Female 11/05/2024 10:24 AM EDT Legal Sex Female 12:49 PM EDT Gender Identity Not on file Sexual Orientation Not on file documented as of this encounter Plan of Treatment Not on file documented as of this encounter Visit Diagnoses Not on filedocumented in this encounter Care Teams Kennel Hand Relationship Specialty Start Date End Date Tabitha Collins PA [address] [place] [address] PCP - General Physician [employer] Applications Analyst 10/08/24 documented as of this encounter
--- OUTSIDE RECORDS SUMMARY | 2025-02-23 12:53 | XMS_ITS | Encounter Summary ---
Author Organization [facility] Address [address] [place] [address] Care Team Providers Care Barker Peeler Name Role Phone Tabitha Collins Primary Care Provider [phone] Encounter Details Date Type Department Care Team (Latest Contact Info) Description 02/17/2025 Travel Social History Tobacco Use Types Packs/Day [...] or training? Not on file Preferred Language Bengali 11/28/2024 Comments No Sex and Gender Information Value Date Recorded Sex Assigned at Female 11/05/2024 10:24 AM EDT Legal Sex Female 12:49 PM EDT Gender Identity Not on file Sexual Orientation Not on file documented as of this encounter Plan of Treatment Not on file documented as of this encounter Visit Diagnoses Not on filedocumented in this encounter Care Teams Barker Peeler Relationship Specialty Start Date End Date Tabitha Collins PA [address] [place] [address] PCP - General Physician Joiners Supervisor 10/08/24 documented as of this encounter
--- OUTSIDE RECORDS SUMMARY | 2025-02-23 12:53 | XMS_ITS | Data Portability ---
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 Plan of Treatment Reminders Order Date Submit Date Provider Last Modified By Organization Details Last Modified Time Details Appointments FOLLOW UP DAK 2024 09:40A M YULISA SNYDER PA-C Not available Not available Not available Lab surgical pathology study 2024 025 [facility], [address] [place] [address], [phone], 07/04/2024 10:35:53 surgical pathology study 2023 024 [facility], [address] [place] [address], [phone], 04/03/2024 13:10:35 surgical pathology study 2023 024 [facility], [address] [place] [address], [phone], 04/30/2023 15:17:31 Referral None recorded. Procedures None recorded. Surgeries None recorded. Imaging None recorded. Medication Orders fluoroura cil 5 % topical cream [address] [facility] #[facility]016, [address] [place], [address], 07/02/2024 20:59:55 desonide 0.05 % topical ointment [address]/Pharmacy #3016, [address] [place], [address], 07/02/2024 21:53:10 fluoroura cil 5 % topical cream 2023 024 [facility], [address] [place], [address], 04/02/2024 12:23:16 fluoroura cil 5 % topical cream [address]/Pharmacy #3016, [address] [place], [address], 01/17/2024 14:38:06 calcipotr iene 0.005 % topical cream [address]/Pharmacy #3016, [address] [place], [address], 01/18/2024 07:58:54 fluoroura cil 5 % topical cream [email or web address]/Pharmacy #3016, [address] [place], [address], 04/26/2023 18:32:36 desonide 0.05 % topical ointment [address]/Pharmacy #3016, [address] [place], [address], 04/26/2023 18:32:36 Patient TargetsNo targets recorded. Patient InstructionsNo instructions recorded. Reason for Referral None Reported. Results Created Date Observation Date Name Description Value Unit Range Abnormal Flag Note LastModifiedBy Organization Detail LastModifiedTime 04/02/20 24 04/02/2024 SURGI SOREN surgical SEE BELOW Ephraim topat holog y Chin t NAME: TALAT MCCALL PATH: DD-[id number] PROCE DURE DATE: 04/02 SIGNO UT DATE: 04/03 Copy to: Diagn osis: Right Smith - ACTIN IC KERAT OSIS SOURC E OF SPECI MEN: SKIN, R SMITH CLINI SOREN INFOR MATIO N: R/O: BCC. Gross Descr iptio n: The speci men consi sted of a ayala fragm ent which was trise cted and measu red 9 x 7 x 4 mm. All submi tted in one casse tte. Micro scopi c Descr iptio n: Atypi soren kerat inocy vilma are prese nt withi n the lower epide rmis. BERHANE PATRICK MD Jolene d Out Date: 04/03 13:10 1 Not Available [facility] [address] [place] [address], [phone], 04/03/2024 13:10:35 07/03/1907/02/2024 SURGI SOREN surgical SEE BELOW Ephraim topat holog y Repor t NAME: TALAT MCCALL PATH: [id number] PROCE DURE DATE: 07/02 SIGNO UT DATE: 07/04 Copy to: Diagn osis: Left Poste rior Calf - BENIG N LICHE NOID KERAT OSIS SOURC E OF SPECI MEN: SKIN, L POST CALF CLINI SOREN INFOR MATIO N: R/O: AK VS SCC. Gross Descr iptio n: The speci men consi sted of a singl e ayala tissu e fragm ent which measu red 13 x 5 x 1 mm. Speci men is seria lly secti oned (x4). All is submi tted in one casse tte. Micro scopi c Descr iptio n: The epide rmis is sligh tly acant hotic and hyper kerat otic and there is a band like lymph ocyti c liche noid infla mmato ry infil trate at the derma l epide rmal junct ion. BERHANE PATRICK MD Jolene d Out Date: 07/04 10:35 1 Not Available [facility] [address] [place] [address], [phone], 07/04/2024 10:35:53 Result Notes None recorded. Procedures Surgical History Date Name Laterality Status Provider Name and Address Organization Details Recorded Time 07/03/19 25 DAK - Cryo AK completed [facility] 07/02/2024 17:04:16 07/03/19 25 DAK - Destruction BN Lesions completed [facility] 07/02/2024 16:59:23 07/03/19 25 Blade Biopsy completed [facility] 07/02/2024 17:03:29 04/02/20 24 Blade Biopsy completed [facility] 04/02/2024 11:41:09 01/17/20 24 DAK - Cryo AK completed [facility] 01/17/2024 14:27:58 01/17/20 24 DAK - Destruction BN Lesions completed [facility] 01/17/2024 14:04:31 06/21/19 24 Destruction Premalignant Lesion(s) completed Deepika Nieves [facility] 06/21/2023 08:56:02 04/26/19 24 Blade Biopsy completed Lynn Gastelum [facility] 04/26/2023 15:34:21 Imaging Results None recorded. Procedure Notes None recorded. Medical Equipment None Reported. Allergies Allergen ID Allergen Name Allergen Category Reaction Reaction Severity Criticality Documentation Date Start Date Code Code System Note Provider Name and Address Organization Details Recorded Time 651811 oxycodone medicatio n Not available Not available Not available 04/26/2023 7804 RxNorm Lizari a Piper [facility] 4 15:20:06 040014 Cipro medicatio n Not available Not available Not available 04/26/2023 57147 3 RxNorm Saadiandri a Piper [facility] 4 15:20:11 Medications Name Sig Start Date Stop Date Status Note LastModified by Organization Details LastModified Time fluorourac il 5 % topical cream APPLY A THIN LAYER TO THE AFFECTED AREA BY TOPICAL ROUTE 2 TIMES PER DAYS FOR 14-28 DAYS. 2024 active Not Available Not Available Not Avai lable desonide 0.05 % topical ointment Apply to AA on face and armpits BID x2 weeks. 2024 active Not Available Not Available Not Avai lable calcipotri jaimee 0.005 % topical cream APPLY A THIN LAYER TO THE AFFECTED AREA (FEET) BY TOPICAL ROUTE 2 TIMES PER DAY FOR 5 DAYS; REPEAT ON HANDS. (MIX WITH FLUOROURA CIL) 2023 active Please dispense calcipotr iene 0.005 % topical ointment instead, as it seems to be covered by her plan. Same sig, quantity, and refills please. Thanks Not Available Not Available Not Available estradiol active Not Available Not Lindsay ilable Not Available albuterol sulfate active Not Available Not Available Not Available simvastati n active Not Available Not Available Not Available triamteren e active Not Available Not Available Not Available metoprolol succinate active Not Available Not Available No t Available Advair Diskus active Not Available Not Available Not Available Vitals None Recorded Social History Question Answer Notes LastModified by Organizat ion Details LastModified Time Tobacco Smoking Status Never Smoker Trish Saldaña [facility] 04/26/2023 15:21:05 What Was The Date Of Your Most Recent Tobacco Screening? 06/21/2023 Information not available 06/21/2023 Sex: Unknown Functional Status Question Answer Note LastModified by Organizat ion Details LastModified Time Do you use any illicit or recreational drugs? No Information not available 06/21/2023 Do you or have you ever used any other forms of tobacco or nicotine? No Information not available 06/21/2023 What is your level of alcohol consumption? None [email or web address] Information not available 04/26/2023 Mental Status None recorded. Family History Relationship Description Onset Age of this Age Resolved Age Notes LastModified by Organization Details LastModified Time Father No current problems or disability [email or web address] Not available 04/26 15:20:56 Mother No current problems or disability [email or web address] Not available 04/26 15:20:56 Medical History Condition Response Squamous Cell Carcinoma Y Basal Cell Carcinoma Y Gynecological HistoryNo gynecological history recorded. Obstetrics History GPAL:G 0 P 0 0 0 0 Past Encounters Encounter ID Performer Location Encounter Start Date Encounter Closed Date Diagnosis/Indication Diagnosis SNOMED-CT Code Diagnosis ICD10 Code Diagnosis IMO Codes Diagnosis Note [id number] SAW BLANDON MD [address] [address] 04/26/2023 14:42:14 04/27/2023 16:50:35 Melanocytic nevus of skin 257748032 D22.5 Reassuranc e given. Solar lentiginosis 07551 2006 L81.4 Reassuranc e given. Zinc and titanium SPF30+ sunscreen recommende d Seborrheic keratosis 394 457642 L82.1 Reassuranc e given Hemangioma of skin 53669 006 D18.01 Reassuranc e given Acute dermatitis 2460215 6 L30.9 Gentle skin care discussed. Recommend Dove sensitive skin bar soap. Recommend CeraVe/Cet aphil. Prescribed desonide 0.05% ointment to apply to AA on body BID x2 weeks. Limited use discussed. Neoplasm o f uncertain behavior of skin 09218736 D48.5 Recommend biopsy. Actinic keratosis 007 L57.0 Precancero us lesion.Pre scribed fluorourac il 5% cream to apply to bilateral feet BID x14-21 days. SE discussed. OK to use desonide ointment to calm irritation once course of fluorourac il is completed. [id number] SAW BLANDON MD [address] [address] 06/21/2023 08:18:37 07/05/2023 13:58:58 Actinic keratosis 520232553 L57.0 Biopsy proven precancero usWill treat with LN2 Acute dermatitis 2872441 6 L30.9 Gentle skin care discussed. Recommend Dove sensitive skin bar soap. Recommend CeraVe/Cet aphil.Disc ussed continuing with Desonide BID x 2 weeks in a row, then take 2 week break before restarting .Patch testing in reserve. [id number] YULISA SNYDER PA-C [address] [address] 01/17/2024 13:30:44 01/17/2024 15:15:52 Inflamed seborrheic keratosis 025106440 L82.0 L29.8 The nature of the diagnosis was explained. Benign. Reassuranc e given.Both ersome lesions (itching, painful, growing, bleeding, getting caught in clothing), treated with LN2.x1 treated today due to itching- upper backLesion s treated may persist. May f/u if treated lesions persist. Actinic keratosis L57.0 The nature of the diagnosis was explained. Pre-cancer ous.Treate d with LN2. Healing process discussed. x5 treated today- L upper arm, R medial calf, L foot, L handRx sent for fluorourac il 5%. SE reviewed.R x sent for calcipotri jaimee. SE reviewed.P t to call with any concerns or if lesion(s) persist. [id number] CALLY PERALTA [address] [address] 04/02/2024 11:16:37 04/02/2024 12:49:31 Neoplasm of uncertain behavior of skin 72083784 D48.5 The etiology of lesion(s) discussed. Biopsy recommende d and completed today.x1 treated today.1.4c m pink shiny plaque with central erosion - R smith r/o BCCHealing process and wound care discussed. Will call pt with results or post to portal if benign. Actinic keratosis L57.0 The nature of the diagnosis was explained. Pre-cancer ous.Pt has completed 2 rounds of 5FU in the past year. Lesions improving but still there.Pt examined by Dr. Gil.Rec ommend use of fluorourac il for 28 days on feet. Also recommend treating upper lip BID x 2 weeksPt to call with any concerns or if lesion(s) persist. Solar lentigo 91550288 L 81.4 The nature of the diagnosis was explained. L posterior smith: Lesion appears borderline atypical clinically , but pt states the lesion has been there a long time with no changes. Picture taken today to closely monitor at next visit.Cont inue to monitor area and call with concerns/c hanges. [id number] [facility] [address] [place] [address] 07/02/2024 15:25:47 07/03/2024 07:11:31 Multiple benign melanocytic nevi 876290708 D22.5 L81.4 L82.1 D18.01 Benign appearing lesions.Re assurance given.Sun protection discussed. Look for physical shawn sunscreens with at least SPF 30 containing zinc oxide or titanium dioxide as active ingredient .Recommend monthly self examinatio ns and yearly full skin examinatio n with a dermatolog y provider.P atient instructed to call with any concerns or changing lesions. Acute dermatitis 8791014 6 L30.8 Gentle skin care discussed. Recommend Dove sensitive skin bar soap. Recommend CeraVe/Cet aphil.Pt requests refill.Pre scribed desonide 0.05% ointment to apply to AA on body BID x2 weeks. Limited use discussed. Neoplasm o f uncertain behavior of skin 20898338 D48.5 The etiology of lesion(s) discussed. x1 Biopsy recommende d and completed today.1) 2.0cm scaly, ill defined pink and brown patch- L posterior calf r/o AK vs SCCHealing process and wound care discussed. Will call pt with results or post to portal if benign. Inflamed s eborrheic keratosis 924246359 L82.0 L29.9 The nature of the diagnosis was explained. Benign. Reassuranc e given.x5 Bothersome lesions (itching, painful, growing, bleeding, getting caught in clothing), treated with LN2.Lesion s treated may persist. May f/u if treated lesions persist. Actinic keratosis L57.0 The nature of the diagnosis was explained. Pre-cancer ous.Just completed another round of 5FU on lower legs. Did 28 days this time. Legs look much better.Pt requests refill of 5FU. Sent today. SE reviewedx1 [address] Healing process discussed. Pt to call with any concerns or if lesion(s) persist. Epidermoid cyst 84966198 6 L72.0 The nature of the diagnosis was explained. Benign. Reassuranc e given.Symp tomatic treatment options discussed. Permanent treatment requires surgical removal.Pt to call if cyst flares/wor sens. Health Concerns Section Related Observation LastModified by Organization Detai ls LastModified Time None Recorded Concern Status LastModified by Organization Details LastModified Time None Recorded Advance Directives Directive None Recorded Payers Insurance Date Sequence Insurance Name Policy Number Policy Wyman Covered Member ID Wyman Member ID Guarantor Name 2024 1 [id number] [id number] Delilah Garcia [id number] Delilah Garcia Notes Date Note Type Note Provider Name and Address Organization Details Recorded Time 4 text/html ROS as noted in the HPI Rash Location(s): Face and axillaPrior diagnosis: NoneDuration: ~since FebruaryPredominant symptom: scely, itchyPrior treatment(s): ketoconazoleRecently, the rash seems to be:minimally changed. I have different spots on my skin that I'd like to be checked Extent of skin exam requested:full SAW BLANDON MD [address] [place] [address], [phone], [facility] 04/26/2023 19:56:57 4 text/html ROS as noted in the HPI Specific spot to check Location: Right SubmandibularGeneral duration: ~monthsPredominant symptom:asymptomaticPrior treatment(s):biopsy : AKHistory of evolution:stablePatient primarily desires lesion to be:evaluated only. SAW BLANDON MD [address] [place] [address], [phone], [facility] 06/29/2023 20:29:54 4 text/html ROS as noted in the HPI I am here to have a spot checked. L ocation: neckDuration: 3 weeksReports: getting bigger and itches. scaly. Looks black Location: fingersDuration: monthReports: itchy. wakes me up in the middle of the night Location: L footduration: long timeReports: this spot has been frozen, chemo cream and will not go away. no hx of skin cancerlast seen 05/2023 YULISA SNYDER PA-C [address] [place] [address], [phone], [facility] 01/17/2024 14:45:07 4 text/html ROS as noted in the HPI AK checkspots have not gone away.- L foot, R foot, Face, leg Last seen 12/2023 YULISA SNYDER PA-C [address] [place], [address], [facility] 04/02/2024 12:24:16 5 text/html ROS as noted in the HPI Pt is here for a skin checkAreas of concern: L thigh, L handReports: Raised spots. Spot on L hand is new Pt is following up with AK'sLocations: face, b/l feetTx: efudexReports: spots clear on face, some still present on feet Requests rf of desonide prescribed by ernie - dermatitis flares in warm seasons YULISA SNYDER PA-C [address] [place], [phone], [facility] 07/02/2024 20:59:56 OBGyn Episode No OBEpisode recorded.
--- OUTSIDE RECORDS SUMMARY | 2025-02-23 12:53 | XMS_ITS | Data Portability ---
Author Organization [employer] [facility] Address [address] [place] [address] Care Team Providers Care Communications Strategist Name Role Phone MALAIKA CRENSHAW Primary Care Provider Unavailab le Assessment No assessment recorded. Plan of Treatment Reminders Order Date Submit Date Provider Last Modified By Organization Details Last Modified Time Details Appointments None recorded. Lab HbA1c (hemoglobin A1c), blood 2024 025 [email or web address] [address] [place] [address], [address], 5 08:10:07 TSH, ultra-sensi tive, serum 2024 025 [facility], [address] [place] [address], [address], 5 08:10:08 Hepatitis C IgG Ab, qual, serum 2024 025 [facility], [address] [place] [address], [address], 5 08:10:07 HIV 1 + 2, meaningful use set 2024 025 [facility], [address] [place] [address], [address], 5 08:10:09 lipid panel, serum 2024 025 [facility] [address] [place] [address], [address], 5 08:10:06 CMP, serum or plasma 2024 025 [facility]), [address] [place] [address], [address], 5 08:10:06 CBC w/ auto diff 2024 025 [facility]), [address] [place] [address], [address], 5 08:10:05 vitamin D, 25-hydroxy, total, serum 2024 025 [facility]), [address] [place] [address], [address], 5 08:10:08 rapid strep group A, throat 2024 025 [email or web address] [facility], [address] [place] [address], [phone], 5 14:21:08 Referral None recorded. Procedures None recorded. Surgeries None recorded. Imaging DEXA, axial skeleton + vertebral fracture assessment [address]), [address], [place], [address], 5 11:10:34 Medication Orders simvastatin 40 mg tablet 2024 025 [facility], [facility] [place], [address], 5 13:18:23 lisinopril 10 mg tablet 2024 025 [facility], [address] [place], [address], 5 13:18:20 metoprolol succinate ER 50 mg tablet,exte nded release 24 hr 2024 025 [facility], [address] [place], [address], 13:18:21 triamterene 37.5 mg-hydrochl orothiazide 25 mg tablet 2024 [facility], [address] [place], [address], 13:18:21 cetirizine 10 mg tablet 2024 025 [facility], [address] [place] [address], [address], 11:29:41 prednisone 20 mg tablet 2024 025 [facility], [address] [place] [address], [address], 10:01:24 desonide 0.05 % topical ointment 2024 [facility], [address] [place] [address], [address], 11:28:51 estradiol 0.05 mg/24 hr semiweekly transdermal patch 2024 025 [facility], [address] [place] [address], [address], 11:28:51 simvastatin 40 mg tablet 2024 025 [facility], [address] [place] [address], [address], 5 11:28:49 lisinopril 10 mg tablet [address] [facility] [address], [address] [place] [address], [address], 5 11:22:46 metoprolol succinate ER 50 mg tablet,exte nded release 24 hr 2024 025 [facility], [address] [place], [address], 11:28:57 triamterene 37.5 mg-hydrochl orothiazide 25 mg tablet 2024 025 [facility], [address] [place], [address], 11:28:56 Wixela Inhub 250 mcg-50 mcg/dose powder for inhalation [email or web address] [place] [address] [facility], [address] [place], [address], 10:40:40 Patient TargetsNo targets recorded. Patient Instructions Encounter Date Encounter Id Patient Instructions Last Modified By Organization Details Last Modified Time 08/28/2024 [id number] Learning About Being Physically Active [email or web address] Not available 08/28/2024 14:21:08 learning about low-carbohydrate diets [email or web address] Not available 08/28/2024 14:21:08 Treat symptomatically with rest, increased fluids, throat lozenges and avoiding allergy triggers. [email or web address] Not available 08/28/2024 14:20:17 Plan of care discussed with patient/guardian who voiced understanding. [email or web address] Not available 08/28/2024 14:20:21 09/25/2024 [id number] seasonal allergi es: care instructions [email or web address] Not available 09/25/2024 11:28:40 herniated disc: care instructions [email or web address] Not available 09/25/2024 11:22:46 herniated disc: exercises [email or web address] Not available 09/25/2024 11:22:46 Eczema: Care Instructions Not available 09/25/2024 11:28:40 HIV testing: car e instructions [email or web address] Not available 09/25/2024 12:08:08 10/09/2024 [id number] learning about t ype 2 diabetes [email or web address] Not available 10/09/2024 11:38:56 type 2 diabetes: care instructions [email or web address] Not available 10/09/2024 11:38:56 herniated disc: care instructions [email or web address] Not available 10/09/2024 11:38:56 herniated disc: exercises [email or web address] Not available 10/09/2024 11:38:56 Reason for Referral None Reported. Results Created Date Observation Date Name Description Value Unit Range Abnormal Flag Note LastModifiedBy Organization Detail LastModifiedTime 08/29/19 25 08/28/2024 rapid strep group A, throa t Strep negati ve Not Available [facility] on [address], [address], 08/28/2024 13:33:18 09/26/19 25 09/26/2024 CBC WITH DIFFE RENTI AL/PL ATELE T WBC 10.8 x10e3 /uL 3.4-10 .8 normal Not Available [facility] ([facility]) [address] [place], [address], 09/26/2024 08:10:05 09/26/19 25 09/26/2024 CBC WITH DIFFE RENTI AL/PL ATELE T RBC 4.95 x10e6 /uL 3.77-5 .28 normal Not Available [facility] ([facility]) [address] [place], [address], 09/26/2024 08:10:05 09/26/19 25 09/26/2024 CBC WITH DIFFE RENTI AL/PL ATELE T hemoglobin 15.1 g/dL 11.1-1 5.9 normal Not Available [facility] ([facility]) [address] [place], [address], 09/26/2024 08:10:05 09/26/19 25 09/26/2024 CBC WITH DIFFE RENTI AL/PL ATELE T hematocrit 45.8 % 34.0-4 6.6 normal Not Available [facility] ([facility]) [address] [place], [address], 09/26/2024 08:10:05 09/26/19 25 09/26/2024 CBC WITH DIFFE RENTI AL/PL ATELE T MCV 93 fL 79-97 normal Not Available [facility] ([facility]) [address] [place], [address], 09/26/2024 08:10:05 09/26/19 25 09/26/2024 CBC WITH DIFFE RENTI AL/PL ATELE T MCH 30.5 pg 26.6-3 3.0 normal Not Available [facility] ([facility]) [address] [place], [address], 09/26/2024 08:10:05 09/26/19 25 09/26/2024 CBC WITH DIFFE RENTI AL/PL ATELE T MCHC 33.0 g/dL 31.5-3 5.7 normal Not Available [facility] ([facility]) [address] [place], [address], 09/26/2024 08:10:05 09/26/19 25 09/26/2024 CBC WITH DIFFE RENTI AL/PL ATELE T RDW 13.3 % 11.7-1 5.4 Not Available [facility] ([facility]) [address] [place], [address], 09/26/2024 08:10:05 09/26/19 25 09/26/2024 CBC WITH DIFFE RENTI AL/PL ATELE T platelets 335 x10e3 /uL 150-45 0 normal Not Available [facility] ([facility]) [address] [place], [address], 09/26/2024 08:10:05 09/26/19 25 09/26/2024 CBC WITH DIFFE RENTI AL/PL ATELE T neutrophils 74 % not estab. normal Not Available [facility] ([facility]) [address] [place], [address], 09/26/2024 08:10:05 09/26/19 25 09/26/2024 CBC WITH DIFFE RENTI AL/PL ATELE T lymphs 16 % not estab. normal Not Available [facility] ([facility]) [address] [place], [address], 09/26/2024 08:10:05 09/26/19 25 09/26/2024 CBC WITH DIFFE RENTI AL/PL ATELE T monocytes 5 % not estab. normal Not Available [facility] ([facility]) [address] [place], [address], 09/26/2024 08:10:05 09/26/19 25 09/26/2024 CBC WITH DIFFE RENTI AL/PL ATELE T eos 2 % not estab. normal Not Available [facility] ([facility]) [address] [facility], [place], [address], 09/26/2024 08:10:05 09/26/19 25 09/26/2024 CBC WITH DIFFE RENTI AL/PL ATELE T basos 1 % not estab. normal Not Available [facility] (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) [address] [place], [address], 09/26/2024 08:10:05 09/26/19 25 09/26/2024 CBC WITH DIFFE RENTI AL/PL ATELE T neutrophils (absolute) 8.0 x10e3 /uL 1.4-7. 0 above high normal Not Available [facility] ([facility]) [address] [place], [address], 09/26/2024 08:10:05 09/26/19 25 09/26/2024 CBC WITH DIFFE RENTI AL/PL ATELE T lymphs (absolute) 1.7 x10e3 /uL 0.7-3. 1 normal Not Available [facility] ([facility]) [address] [facility], [place], [address], 09/26/2024 08:10:05 09/26/19 25 09/26/2024 CBC WITH DIFFE RENTI AL/PL ATELE T monocytes(ab solute) 0.5 x10e3 /uL 0.1-0. 9 normal Not Available [facility] ([facility]) [address] [facility], [place], [address], 09/26/2024 08:10:05 09/26/19 25 09/26/2024 CBC WITH DIFFE RENTI AL/PL ATELE T eos (absolute) 0.3 x10e3 /uL 0.0-0. 4 normal Not Available [facility] ([facility]) [address] [facility], [place], [address], 09/26/2024 08:10:05 09/26/19 25 09/26/2024 CBC WITH DIFFE RENTI AL/PL ATELE T baso (absolute) 0.1 x10e3 /uL 0.0-0. 2 normal Not Available [facility] ([facility]) [address] [place], [address], 09/26/2024 08:10:05 09/26/19 25 09/26/2024 CBC WITH DIFFE RENTI AL/PL ATELE T immature granulocytes 2 % not estab. Not Available [facility] ([facility]) [address] [place], [address], 09/26/2024 08:10:05 09/26/19 25 09/26/2024 CBC WITH DIFFE RENTI AL/PL ATELE T immature grans (abs) 0.2 x10e3 /uL 0.0-0. 1 above high normal (An eleva louis perce ntage of Immat ure Granu locyt es has not been found to be clini geovanna signi fican t as a sole clini soren predi ctor of disea se. Does NOT inclu de bands or blast cells . Pregn anai assoc iated physi ologi soren leuko cytos is may also show incre ased immat ure granu locyt es witho ut clini soren signi fican ce.) Not Available [facility] (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) [address] [facility], [place], [address], 09/26/2024 08:10:05 09/26/19 25 09/26/2024 COMP. METAB OLIC PANEL (14) glucose 107 mg/dL 70-99 above high normal Not Available [facility] ([facility]) [address] [facility], [place], [address], 09/26/2024 08:10:05 09/26/19 25 09/26/2024 COMP. METAB OLIC PANEL (14) BUN 23 mg/dL 8-27 normal Not Available [facility] ([facility]) [address] [facility], [place], [address], 09/26/2024 08:10:05 09/26/19 25 09/26/2024 COMP. METAB OLIC PANEL (14) creatinine 1.01 mg/dL 0.57-1 .00 above high normal Not Available [facility] ([facility]) [address] [facility], [place], [address], 09/26/2024 08:10:05 09/26/19 25 09/26/2024 COMP. METAB OLIC PANEL (14) eGFR 61 mL/mi n/1.7 3 >59 normal Not Available [facility] ([facility]) [address] [place], [address], 09/26/2024 08:10:05 09/26/19 25 09/26/2024 COMP. METAB OLIC PANEL (14) BUN/creatini ne ratio 23 12-28 normal Not Available [facility] ([place] [facility]) [address] [place], [address], 09/26/2024 08:10:05 09/26/19 25 09/26/2024 COMP. METAB OLIC PANEL (14) sodium 139 mmol/ L 134-14 4 normal Not Available [facility] ([facility]) [address] [place], [address], 09/26/2024 08:10:05 09/26/19 25 09/26/2024 COMP. METAB OLIC PANEL (14) potassium 4.3 mmol/ L 3.5-5. 2 normal Not Available [facility] ([place] [facility]) [address] [place], [address], 09/26/2024 08:10:05 09/26/19 25 09/26/2024 COMP. METAB OLIC PANEL (14) chloride 100 mmol/ L 96-106 normal Not Available [facility] ([place] [facility]) [address] [place], [address], 09/26/2024 08:10:05 09/26/19 25 09/26/2024 COMP. METAB OLIC PANEL (14) carbon dioxide, total 24 mmol/ L 20-29 normal Not Available [facility] ([place] [facility]) [address] [place], [address], 09/26/2024 08:10:05 09/26/19 25 09/26/2024 COMP. METAB OLIC PANEL (14) calcium 9.5 mg/dL 8.7-10 .3 normal Not Available [facility] ([place] [facility]) [address] [facility], [place], [address], 09/26/2024 08:10:05 09/26/19 25 09/26/2024 COMP. METAB OLIC PANEL (14) protein, total 6.3 g/dL 6.0-8. 5 normal Not Available [facility] ([facility]) [address] [place], [address], 09/26/2024 08:10:05 09/26/19 25 09/26/2024 COMP. METAB OLIC PANEL (14) albumin 4.2 g/dL 3.9-4. 9 normal Not Available [facility] ([facility]) [address] [place], [address], 09/26/2024 08:10:05 09/26/19 25 09/26/2024 COMP. METAB OLIC PANEL (14) globulin, total 2.1 g/dL 1.5-4. 5 Not Available [facility] ([facility]) [address] [place], [address], 09/26/2024 08:10:05 09/26/19 25 09/26/2024 COMP. METAB OLIC PANEL (14) bilirubin, total 0.3 mg/dL 0.0-1. 2 normal Not Available [facility] ([facility]) [address] [place] [place], [address], 09/26/2024 08:10:05 09/26/19 25 09/26/2024 COMP. METAB OLIC PANEL (14) alkaline phosphatase 59 IU/L 44-121 normal Not Available [facility] ([facility]) [address] [place], [address], 09/26/2024 08:10:05 09/26/19 25 09/26/2024 COMP. METAB OLIC PANEL (14) AST (SGOT) 15 IU/L 0-40 normal Not Available [facility] ([facility]) [address] [facility], [place], [address], 09/26/2024 08:10:05 09/26/19 25 09/26/2024 COMP. METAB OLIC PANEL (14) ALT (SGPT) 20 IU/L 0-32 normal Not Available [facility] ([facility]) [address] [place], [address], 09/26/2024 08:10:05 09/26/19 25 09/26/2024 LIPID PANEL cholesterol, total 208 mg/dL 100-19 9 above high normal Not Available [facility] ([facility]) [address] [place], [address], 09/26/2024 08:10:06 09/26/19 25 09/26/2024 LIPID PANEL triglyceride s 212 mg/dL 0-149 above high normal Not Available [facility] ([facility]) [address] [place], [address], 09/26/2024 08:10:06 09/26/19 25 09/26/2024 LIPID PANEL HDL cholesterol 65 mg/dL >39 normal Not Available [facility] ([facility]) [address] [place], [address], 09/26/2024 08:10:06 09/26/19 25 09/26/2024 LIPID PANEL VLDL cholesterol soren 36 mg/dL 5-40 Not Available [facility] ([facility]) [address] [place], [address], 09/26/2024 08:10:06 09/26/19 25 09/26/2024 LIPID PANEL LDL chol calc ([facility]) 107 mg/dL 0-99 above high normal Not Available [facility] (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) [address] [facility], [place], [address], 09/26/2024 08:10:06 09/26/1909/26/2024 HCV ANTIB ALEJANDRO CASCA DE(PC R/GEN O) HCV Ab Non Reacti ve non reacti ve Not Available [facility] ([facility]) [address] [facility], [place], [address], 09/26/2024 08:10:07 09/26/1909/26/2024 HCV ANTIB ALEJANDRO CASCA DE(PC R/GEN O) interpretati on: Commen t Not infec louis with HCV unles s early or acute infec tion is suspe cted (whic h may be delay ed in an immun ocomp romis ed indiv idual ), or other evide nce exist s to indic ate HCV infec tion. Not Available [facility] ([facility]) [address] [facility], [place], [address], 09/26/2024 08:10:07 09/26/1909/26/2024 HEMOG LOBIN A1C hemoglobin A1C 6.5 % 4.8-5. 6 above high normal Predi abete s: 5.7 - 6.4 Diabe vilma: >6.4 Glyce helen contr ol for adult s with diabe vilma: <7.0 Not Available [facility] ([facility]) [address] [facility], [place], [address], 09/26/2024 08:10:07 09/26/1909/26/2024 TSH TSH 1.450 uIU/m L 0.450- 4.500 normal Not Available [facility] ([facility]) [address] [facility], [place], [address], 09/26/2024 08:10:08 09/26/1909/26/2024 VITAM IN D, 25-HY DROXY vitamin D, 25-hydroxy 56.6 NG/mL 30.0-1 00.0 Vitam in D defic iency has been defin ed by the Insti tute of Medic ine and an Endoc rine Socie ty pract ice guide line as a level of serum 25-OH vitam in D less than 20 ng/mL (1,2) . The Endoc rine Socie ty went on to furth er defin e vitam in D insuf ficie ncy as a level betwe en 21 and 29 ng/mL (2). 1. IOM (Inst itute of Medic ine). 2009. Dieta ry refer ence intak es for calci um and D. Gopal pollock [place]: The [facility]ade [facility] Press . 2. Cortes barron MF, Lay edwards [place], Michelle off-F errar i ZAFAR, et al. Evalu ation , treat ment, and preve ntion of vitam in D defic iency : an Endoc rine Socie ty clini soren pract ice guide line. JCEM. 2010; 96(7) :1911 -30. Not Available [facility] ([facility]) [address] [facility], [place], [address], 09/26/2024 08:10:08 09/26/19 25 09/26/2024 HIV AB/P2 4 AG WITH REFLE X HIV Ab/P24 Ag screen Non Reacti ve non reacti ve HIV-1 /HIV- 2 antib odies and HIV-1 p24 antig en were NOT detec louis. There is no labor atory evide nce of HIV infec tion. HIV Negat gracia Not Available [facility] ([facility]) [address] [facility], [place], [address], 09/26/2024 08:10:09 02/21/20 25 02/17/2025 MAMMO , scree le, bilat eral No observ ation record ed. [facility] [address] [facility], [place], [address], 02/20/2025 09:32:34 Result Notes None recorded. Problems Name Problem SNOMED Code Status Onset Date Resolution Date Notes Provider Name and Address Organization Details Recorded Time Mixed hyperlip idemia 400314404 Active 2020 Problem Code: E78.2; Problem Code Type: ICD-10; Not Available [facility] 22:03:49 Menopaus e present 430426793 Active 2020 Problem Code: N95.1; Problem Code Type: ICD-10; Not Available [facility] 22:03:49 Syncope and collapse 713813367 Completed 202003/22/2021 Problem Code: R55; Problem Code Type: ICD-10; Not Available [facility] 22:03:49 Hyperten sive disorder 38802368 Active 2020 Problem Code: I10; Problem Code Type: ICD-10; Not Available [facility] 22:03:49 Inflamma tion of sacroili ac joint 77659709 Active 2021 Problem Code: M46.1; Problem Code Type: ICD-10; Not Available [facility] 22:03:49 Body mass index 30+ - obesity 594688774 Active 2021 Problem Code: Z68.30; Problem Code Type: ICD-10; Not Available [facility] 22:03:50 Left side sciatica 73099933734 9104 Active 2021 Problem Code: M54.32; Problem Code Type: ICD-10; Not Available [facility] 22:03:49 Low back pain 567559829 Active 2021 Problem Code: M54.5; Problem Code Type: ICD-10; Not Available [facility] 22:03:49 Prolapse d lumbar interver tebral disc 475117368 Active 2024 YEE Mccabe [address] [place] [address], [phone] , [employer] 5 11:10:30 Allergic rhinitis caused by pollen 67004151 Active 2024 YEE Mccabe [address] [place] [address], [address] , [employer] 5 11:23:03 Atopic dermatit is 53186321 Active 2024 YEE Mccabe [address] [place] [address], [address] , [employer] 11:23:28 Hypergly cemia 13329362 Active 2024 Tabitha Collins [address], [address] , [employer] 10:04:53 Type 2 diabetes mellitus 31312664 Active 2024 Tabithaluca Collins [address], [address] , [employer] 11:38:19 Candidal vulvovag initis 49021026 Active 2024 [facility] [address], [address] , [employer] 13:10:52 Problem Notes None recorded. Procedures Surgical History Date Name Laterality Status Provider Name and Address Organization Details Recorded Time 12/05/19 25 discectomy of spine completed [employer] 12/25/2024 10:42:50 primary lumbar discectomy completed [email or web address] 01/04/2022 12:25:26 section completed [employer] 09/25/2024 10:47:54 section completed [employer] 09/25/2024 10:47:58 Tubal Ligation completed [employer] 12/25/2024 10:42:59 right oophorectomy completed [employer] 09/25/2024 10:48:10 Total Hysterectomy completed [employer] 09/25/2024 10:48:17 Imaging Results None recorded. Procedure Notes None recorded. Medical Equipment None Reported. Allergies Allergen ID Allergen Name Allergen Category Reaction Reaction Severity Criticality Documentation Date Start Date Code Code System Note Provider Name and Address Organization Details Recorded Time 70645 Cipro medicatio n Not available Not available Not available 12/27/202159001 3 RxNorm Not Available [facility] 2 22:57:18 20163 oxycodone medicatio n Not available Not available Not available 01/05/2023 7804 RxNorm Brenna PETE Garcia - [employer] 08:30:07 Medications Name Sig Start Date [...] height Body mass index (BMI) Body weight Body temperature Heart rate Oxygen saturation Oxygen saturation in Arterial blood by Pulse oximetry Systolic And Diastolic Provider Name and Address Organization Details Last Updated DateTime 5 157.48 cm 30.7 kg/m2 91934.5 2 g 98.4 [degF] 69 /min 97 % 97 % 148/92 mm[Hg] Brenna Arizmendi [employer] 5 13:32:35 Date Recorded Body height Body mass index (BMI) Body weight Body temperature Heart rate Oxygen saturation Oxygen saturation in Arterial blood by Pulse oximetry Systolic And Diastolic Systolic And Diastolic Systolic And Diastolic Provider Name and Address Organization Details Last Updated DateTime 5 157.48 cm 32.8 kg/m2 42176.4 7 g 98.1 [degF] 74 /min 96 % 96 % 180/106 mm[Hg] 190/106 mm[Hg] 178/106 mm[Hg] Marisa Josue [employer] 5 11:58:34 Date Recorded Body height Body mass index (BMI) Body weight Oxygen saturation Oxygen saturation in Arterial blood by Pulse oximetry Heart rate Body temperature Systolic And Diastolic Systolic And Diastolic Provider Name and Address Organization Details Last Updated DateTime 5 157.48 cm 32 kg/m2 13403.3 8 g 95 % 95 % 84 /min 97.9 [degF] 142/86 mm[Hg] 144/86 mm[Hg] [employer] 5 10:04:24 Date Recorded Body height Body mass index (BMI) Body weight Oxygen saturation Oxygen saturation in Arterial blood by Pulse oximetry Heart rate Body temperature Systolic And Diastolic Provider Name and Address Organization Details Last Updated DateTime 5 157.48 cm 33.4 kg/m2 88609.2 5 g 96 % 96 % 72 /min 98 [degF] 128/74 mm[Hg] [employer] 5 10:39:23 Social History Question Answer Notes LastModified by Organizat ion Details LastModified Time Tobacco Smoking Status Never Smoker Patrick finney: 'Tobacco /Alcohol /Supplem ents'; Patrick guaman: 'Never Smoker'; Not Available [facility] 12/27/2021 23:00:07 Do You Have An Advance Directive? No [email or web address] Information not available 01/05/2023 Is Your Home Air Conditioned? Yes [email or web address] Information not available 01/05/2023 Are You Blind Or Do You Have Difficulty Seeing? No Information not available 01/04/2022 What Is Your Level Of Caffeine Consumption? 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 [employer] Information not available 01/04/2022 Have There Been Any Changes To Your Family Or Social Situation? No Information not available 08/01/2022 Are There Any Guns Present In Your Home? No Information not available 01/05/2023 Which Of Your Hands Is Dominant? Right Information not available 09/25/2024 Do You Have A Medical Power Of Debate Director? No [email or web address] Information not available 01/05/2023 What Was The Date Of Your Most Recent Tobacco Screening? 12/25/2024 Information not available 12/25/2024 Do You Have Any Pets? No [email or web address] Information not available 01/05/2023 What Is Your Relationship Status? Information not available 01/04/2022 Do You Use Your Seat Belt Or Car Seat Routinely? Yes Information not available 01/04/2022 Do You Have Smoke And Carbon Monoxide Detectors In Your Home? Yes [email or web address] Information not available 01/05/2023 Are You Passively [...] use any illicit or recreational drugs? 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 No Information not available 01/04/2022 Mental Status Question Answer Note LastModified by Rank By [employer] Details LastModified Time Do you feel stressed (tense, restless, nervous, or anxious, or unable to sleep at night)? [id number] [employer] Information not available 01/09/2022 Do you have difficulty concentrating, remembering or making decisions? No Leaky[employer] Information n ot available 01/04/2022 Family History [...] split virus, quadrivalent, PF 2 completed Rayna Wade null, [employer] 02/08/2022 15:16:44 Influenza, split virus, trivalent, preservative 4 completed Malaika Crenshaw PA-C [address] [place] [address], [phone], [employer] 02/08/2024 09:02:03 COVID-19, mRNA, LNP-S, PF, 100 mcg/0.5mL dose or 50 mcg/0.25mL dose 1 completed Laurence Best null, [employer] 04/05/2022 09:09:14 COVID-19, mRNA, LNP-S, PF, 100 mcg/0.5mL dose or 50 mcg/0.25mL dose 1 completed Laurence Best null, [employer] 04/05/2022 09:09:14 Hep A, adult 8 completed Laurence Best null, [employer] 04/05/2022 09:09:14 Hep A, adult 9 completed Laurence Best null, [employer] 04/05/2022 09:09:14 COVID-19, mRNA, LNP-S, PF, 100 mcg/0.5mL dose or 50 mcg/0.25mL dose 1 completed Laurence engel, [employer] 04/05/2022 09:09:14 Influenza, split virus, quadrivalent, PF 0 completed Laurence Best null, [employer] 04/05/2022 09:09:14 Influenza, split virus, quadrivalent, PF 9 completed Laurence Best null, [employer] 04/05/2022 09:09:14 Tdap 5 completed Marisamohamud Josue null, [employer] 12/25/2024 15:01:24 zoster recombinant 5 completed Marisa null, [employer] 12/25/2024 15:01:24 Pneumococcal conjugate PCV21, polysaccharide BPD163 conjugate, PF 5 completed Marisa null, [employer] 12/25/2024 15:01:25 Influenza, high-dose, trivalent, PF 5 completed Maria Antonia engel, [employer] 02/13/2025 11:56:36 Influenza, split virus, quadrivalent, PF 3 completed Not Available [facility] 02/13/2025 11:44:21 Past Encounters Encounter ID Performer Location Encounter Start Date Encounter Closed Date Diagnosis/Indication Diagnosis SNOMED-CT Code Diagnosis ICD10 Code Diagnosis IMO Codes Diagnosis Note [id number] Malaika Crenshaw PA-C [facility] [address] [place] [address] 01/04/2022 12:14:15 01/06/2022 10:56:11 Cough 28923910 R05.9 COVID and influenza A & B are negative. Medicaiton s as prescribed . avoid allergy triggers. Acute uppe r respiratory infection 63322687 J06.9 Rest, increase fluids, Tylenol for fever or headache. Humidifier . Meds as prescribed .. Body mass index 30+ - obesity 349122309 Z68.30 healthy diet and exercise program. Tobacco non-user [id number] 001 08050 Z13.89 [id number] Malaika Crenshaw PA-C [facility] y [address] [place], [place] [address] 01/09/2022 11:52:52 01/10/2022 08:26:33 Strain of neck muscle 002197372 S16.1XXA Continue ice packs, avoid any physical activity which exacerbate s symptoms, low physical activity for 1 week. Medication s as prescribed . F/u in 1 week if not improved. Body mass index 30+ - obesity 384462065 Z68.30 healthy diet and exercise program. Tobacco non-user 2983824 001 77142 Z13.89 continue nonsmoking status [id number] Malaika Crenshaw PA-C [facility] y [address] [place], [place] [address] 02/08/2022 13:33:10 02/08/2022 15:16:57 Administration of influenza vaccine 33936157 Z23 [id number] Malaika Crenshaw PA-C [facility] y [address] [place] [address] 3 03/23/2022 08:40:58 03/23/2022 09:53:07 Cough 84422213 R05.9 COVID and influenza A & B are negative. Medication s as prescribed . Avoid allergy triggers. Medication s as prescribed . Acute uppe r respiratory infection 40217925 J06.9 COVID and influenza A & B are negative. Medication s as prescribed . Avoid allergy triggers. Medication s as prescribed . Tobacco non-user 4700165 001 97292 Z13.89 continue nons moking status Body mass index 30+ - obesity 108227614 Z68.30 healthy diet and exercise program. [id number] Malaika Crenshaw PA-C [place] [address] 3 03/28/2022 11:15:32 03/28/2022 11:27:14 Cough 67350724 R05.9 Influenza caused by Influenza A virus 997289952 J09.X2 Quarantine for 5-7 days. Rest, increase fluids, Tylenol alternatin g with Motrin for fever or pain, humidifier , and f/u if new or worsening symptoms. [id number] Malaika Crenshaw PA-C [facility] [address] [place] [address] 3 04/05/2022 09:07:54 04/05/2022 09:13:51 Influenza caused by Influenza A virus 848358301 J09.X2 Explained persisting cough is due to the influenza and may last up to 7-10 more days with gradual improvemen t. Recommend chest x-ray to rule out pneumonia. Reactive a irway disease 6843729026 06 J45.909 recommend restarting the Advair inhaler and use Albuterol prn. Chest x-ray today, pending results would recommend Kenalog injection and Prednisone taper. [id number] Malaika Crenshaw PA-C [address] 3 08/01/2022 11:20:16 08/01/2022 13:31:35 Acute bronchitis 43314512 J20.9 rest, increase fluids, Tylenol or Motrin for fever or pain, humidifier . continue current maintenanc e inhaler and use Albuterol as rescue.. Prednisone taper along with antitussiv e. F/u in 5-7 days if not improving. Body mass index 30+ - obesity 111972751 Z68.30 healthy diet and exercise program. Tobacco non-user 2783150 001 55627 Z13.89 continue nons moking status [id number] Malaika Crenshaw PA-C [facility] [address] [place] [address] 3 08/07/2022 10:43:23 08/10/2022 08:52:13 Reactive airway disease 9034548340 06 J45.909 Continue Advair and use Albuterol nebulizer q 4-6 hours prn wheezing or cough. Kenalog 80 mg IM now. Complete Biaxin. Recommend pulmonolog ist referral. Body mass index 30+ - obesity 456362630 Z68.30 healthy diet and exercise program. Tobacco non-user 4974141 001 74958 Z13.89 continue nons moking status [id number] Malaika Crenshaw PA-C [facility] [address] [place] [address] 3 08/24/2022 13:33:38 08/30/2022 08:42:11 Essential hypertension 26551523 I10 Continue current medication s. Patient is to monitor BP once daily and keep a diary. Recommend low sodium diet and return to walking exercise for 30 minutes gradually working up to 1 hour at least 4-5 days a week. F/u in 3 months for recheck. Patient to obtain fasting labs at her [facility], further treatment pending results. Mixed hyperlipidemia 267 122980 E78.2 Continue current medication s. Fasting labs at her [facility] in near future. Low cholestero l, low fat diet and regular exercise as discussed. F/u in 3 months pending lab results. Postmenopausal state 764 97268 Z78.0 Patient to obtain mammogram in September. Encourage monthly self breast exams. Recommend bone density study and colonoscop y due 2023. Body mass index 30+ - obesity 413927247 Z68.30 healthy diet and exercise program.Di scussed weight watchers points system program. Reactive a irway disease 6292377936 06 J45.909 Continue Advair, Zyrtec and use Albuterol prn. If patient has another major flare up in next 2-3 months would recommend pulmonolog y referral. [id number] Malaika Crenshaw PA-C [place] [address] 3 01/05/2023 08:28:35 01/05/2023 13:54:58 Acute tonsillitis caused by Streptococcus 0673575332 4871208 J03.00 Antibiotic s as prescribed . Rest, increase fluids, Tylenol or Motrin for fever or pain. Explained contagious nature of illness. F/u in 5-7 days if not improved. Viral uppe r respiratory tract infection 155238436 J06.9 Body mass index 30+ - obesity 813701847 Z68.30 healthy diet and exercise program.Di scussed weight watchers points system program. Tobacco non-user 0823580 001 61829 Z13.89 continue non smoking status [id number] Malaika Crenshaw PA-C [place] [address] 3 06/06/2023 12:38:22 06/06/2023 13:36:35 Acute tonsillitis caused by Streptococcus 3209707821 1627211 J03.00 Antibiotic s as prescribed . Rest, increase fluids, Tylenol or Motrin for fever or pain. Explained contagious nature of illness. F/u in 5-7 days if not improved. Acute urin lynne tract infection 294490586 N39.0 Antibiotic s as prescribed . Increase fluids, Tylenol or Motrin for fever or pain, and expect improvemen t in 2-3 days COVID-19 019204362 U07.1 Quarantine for 5 -10 days, may return to normal activity on day 6 if asymptomat ic but must wear a mask for 5 more days. Rest, increase fluids, Tylenol or Motrin for fever or pain. F/u if new or worsening symptoms occur. Dayna MCMAHAN for congestion and cough. Obesity 949308321 E66.9 Tobacco non-user 5056231 001 58268 Z13.89 [id number] Malaika Crenshaw PA-C [facility] [facility] [address] [place] [address] 3 08/30/2023 08:27:51 08/31/2023 10:26:11 Adult health examination 906145614 Z00.00 Patient to obtain [facility] , bone density and colonoscop y as planned. Encourage monthly self breast exam. F/u in 4 months for BP recheck. Essential hypertension 09593840 I10 Continue current medication s. Patient is to monitor BP once daily and keep a diary. Recommend low sodium diet and return to walking exercise for 30 minutes gradually working up to 1 hour at least 4-5 days a week. F/u in 3 months for recheck. Patient to obtain fasting labs at her [facility], further treatment pending results. Mixed hyperlipidemia 267 102087 E78.2 Continue current medication s. Fasting labs at her [facility] in near future. Low cholestero l, low fat diet and regular exercise as discussed. F/u in 3 months pending lab results. Reactive a irway disease 9480820160 06 J45.909 Continue Advair, Zyrtec and use Albuterol prn. If patient has another major flare up in next 2-3 months would recommend pulmonolog y referral. Obesity 830458265 E66.9 Postmenopausal state 764 13536 Z78.0 Patient to obtain mammogram in September. Encourage monthly self breast exams. Recommend bone density study and colonoscop y due 2023. [id number] Malaika Crenshaw PA-C [facility] [address] [place], [place] [address] 02/07/2024 08:25:04 02/08/2024 10:01:12 Administration of influenza vaccine 16911932 Z23 [id number] Malaika Crenshaw PA-C [facility] [address] [place] [address] 3 02/19/2024 09:02:02 02/20/2024 09:21:30 Acute urinary tract infection 272396681 N39.0 Antibiotic s as prescribed . Increase fluids, Tylenol or Motrin for fever or pain, and expect improvemen t in 2-3 days, if not f/u for recheck. Obesity 563096568 E66.9 Healthy low fat low cholestero l diet and regular aerobic exercise. Tobacco non-user 3032412 001 95928 Z13.89 [id number] Malaika Crenshaw PA-C [facility] [address] [place] [address] 3 03/10/2024 13:22:27 03/10/2024 14:16:27 Acute bronchitis 71210716 J20.9 Antibiotic and steroid as prescribed . rest, increase fluids, Tylenol or Motrin for fever or pain, humidifier . continue current maintenanc e inhaler and use Albuterol as rescue... F/u in 5-7 days if not improving. Body mass index 30+ - obesity 308596551 Z68.30 healthy diet and exercise program.Di scussed weight watchers points system program. Tobacco non-user 7168322 001 76909 Z13.89 [id number] Malaika Crenshaw PA-C [facility] [address] [place] [address] 3 03/18/2024 12:02:35 03/18/2024 15:13:46 Acute urinary tract infection 204820214 N39.0 Medication as prescribed . Increase fluids and add Milk of Magnesia for constipati on if no bowel movement in 24-48 hours. F/u in 48 hours if not improved. Obesity 870928759 E66.9 Healthy low fat low cholestero l diet and regular aerobic exercise. Tobacco non-user 5116414 001 90633 Z13.89 [id number] Malaika Crenshaw PA-C [facility] [address] [place] [address] 3 08/28/2024 13:29:34 08/28/2024 14:33:27 Acute viral pharyngitis 740762402 J02.9 300429 Treat symptomati geovanna with rest, increased fluids, Tylenol or Motrin for fever or pain, and throat lozenges. Body mass index 30+ - obesity 390072028 E66.9 9702892 healthy diet and exercise program.Di scussed weight watchers points system program. Non-smoker 7700209 Z78.9 271426 [id number] YEE Mccabe [facility] [address] [place] [address] 09/25/2024 10:24:13 09/25/2024 11:23:50 Prolapsed lumbar intervertebral disc 305343691 M51.26 [id number] Reviewed MRI resultsNeu rosurgery referral pending Hypertensive disorder 38 951657 I10 Mixed hyperlipidemia 267 622745 E78.2 34753 Mild inter mittent asthma 357177854 J45.20 4558599045 Allergic r hinitis caused by pollen 55073624 J30.1 60510447 Atopic dermatitis 676876 01 L20.9 81546744 Drug therapy finding 309 426424 Z79.890 06076722 Thyroid di sorder screening 102528498 Z13.29 703024 HIV screening 179867261 Z11.4 343243 Viral scre ening status 187015265 Z11.59 608077 High hemog lobin A1c level 089824253 R73.09 767457 [id number] YEE Mccabe [address] [address] 10/09/2024 09:54:26 10/09/2024 10:12:41 Mixed hyperlipidemia 763747147 E78.2 Type 2 dustin betes mellitus 19981663 E11.9 30256728 HgA1c 6.5. Will try diet and exercise and monitor. Prolapsed lumbar intervertebral disc 147711656 M51.26 509063 Saw neurosurge ry yesterday - referral pending [id number] YEE Mccabe [address] [address] 12/25/2024 10:26:51 12/25/2024 11:16:13 Postmenopausal state 09647524 Z78.0 449929 Requires d iphtheria, tetanus and pertussis vaccination 003639506 Z23 288860 Requires v aricella vaccination 275225795 Z23 968914 Requires v accination against Streptococcus pneumoniae 3125475525 Z23 847165 Hypertensive disorder 38 714643 I10 Mixed hyperlipidemia 267 209023 E78.2 [id number] YEE Mccabe [facility] [address] [place] [address] 02/13/2025 11:43:15 02/13/2025 11:55:29 Requires influenza virus vaccination 277536308 Z23 1856716 Health Concerns Section Related Observation LastModified by Organization Detai ls LastModified Time None Recorded Concern Status LastModified by Organization Details LastModified Time None Recorded Advance Directives Directive N: Payers Insurance Date Sequence Insurance Name Policy Number Policy Wyman Covered Member ID Wyman Member ID Guarantor Name 02/13/2025 2 [facility] SKILLED [facility]URSING (MEDICARE SUPPLEMENT) Delilah L Jose [id number] Delilah L [place] 02/13/2025 1 [place] Delilah L [place] [id number] Delilah L [place] 02/13/2025 [place] [employer] [facility] Delilah L Jose [id number] Delliah L [place] 12/25/2024 1 [place] [employer] [facility] [id number] Delilah L Jose [id number] Delilah L [place] Notes Date Note Type Note Provider Name and Address Organization Details Recorded Time 08/28/2024 text/html Sore ThroatRepor louis by PatientHPIFor severity, patient reportsworsening. For associated symptoms, patient reportsheadachebut reportsno fever,no cough,no dysphagia,no nausea, andno vomiting(scratchy sore throat irritated by mccain at work). For location, patient reportsbilateral. For onset/timing, patient reportssudden. For context, patient reportsno recent travel,no new medications,no one else with similar symptoms, andno known allergies. For duration, (started today). Malaika Crenshaw PA-C [address] [place] [address], [id number], [facility] [employer] 08/28/2024 14:21:50 09/25/2024 text/html ROS as noted in the HPI Patient presents to establish care at [facility].History of HTN, asthma, hyperlipidemia, allergies, eczema, HRT.She is overall doing well. However, 5-6 days ago she began having severe pain in her low back, radiating down her left leg. She has a history of herniated disk and microdiskectomy approximately 3 years ago. Saw chiropractor - had MRI showing disc extrusion impinging left S1 nerve root. Sees neurosurgery next week. Would like refill on steroids until then because that is the only thing that has provided a little relief. YEE Mccabe [address] [place], [address], [employer] 09/25/2024 15:50:00 10/09/2024 text/html ROS as noted in the HPI Patient presents for followup.Has lumbar disc herniation. Got some relief of severe pain with steroids. Started Gabapentin as well but it made her loopy. Saw neurosurgery yesterday and is waiting to have surgery scheduled. Had microdiskectomy performed a few years ago and did well until a few weeks ago.Patient had labs at initial visit. HgA1c is 6.5. She would like to try diet and exercise following the surgery before she takes meds. YEE Mccabe [address] [place], [address], [employer] 10/09/2024 11:39:22 12/25/2024 text/html ROS as noted in the HPI Patient presents for followup.History of HTN. Needs refills on Lisinopril.Recently had lumbar surgery - is doing much better. Just released to start sitting up for 30 minutes at a time. Not taking any pain medicine.Has gained weight YEE Mccabe [address] [place], [address], [employer] 12/25/2024 13:18:35 OBGyn Episode No OBEpisode recorded.
--- OUTSIDE RECORDS SUMMARY | 2025-02-23 12:54 | XMS_ITS | Clinical Summary ---
Author Organization [facility] Address [facility] [place] [address] Care Team Providers Care Motion Picture Camera Operator Name Role Phone Malaika Crenshaw Primary Care Provider [phone] Allergies Active Allergy Reactions Criticality Noted Date Comments Ciprofloxacin Rash Low 07/04/2023 Oxycodone Other - please docum ent in the comment field Low 08/08/2023 Oxycodone-Acetaminophen Other - please d ocument in the comment field Low 11/11/2021 Medications simvastatin (Zocor) 40 MG tablet Take 1 tablet (40 mg) by mouth 1 (one) time each day. Active triamterene-hyd rochlorothiazid e (Maxzide-25) 37.5-25 MG tablet Active metoprolol succinate XL (Toprol-XL) 50 MG 24 hr tablet Acti ve Wixela Inhub 250-50 MCG/ACT diskus inhaler 4 Active desonide (DesOwen) 0.05 % ointment APPLY TO AFFECTED AREA ON FACE AND ARMPITS TWICE A DAY FOR 2 WEEKS 4 Active estradiol (Vivelle-DOT) 0.05 MG/24HR APPLY 1 PATCH ON SKIN TWICE WEEKLY DIRECTED Active cetirizine (ZyrTEC) 10 MG tablet Take 1 tablet (10 mg) by mouth 1 (one) time each day. Active timolol (Timoptic) 0.5 % ophthalmic solution Administer 1 drop into the left eye 2 (two) times a day. 5 mL 6 4 Active timolol (Timoptic) 0.5 % ophthalmic solution Administer 1 drop into the left eye 2 (two) times a day. 10 mL 6 4 Active Additional Information Patient not taking.Reported on 02/17/2025 timolol (Timoptic) 0.5 % ophthalmic solution Administer 1 drop into the left eye 2 (two) times a day. 5 mL 6 4 Active Additional Information Patient not taking.Reported on 02/17/2025 Simvastatin 20 MG/5ML suspension Active Metoprolol Succinate 25 MG capsule extended-releas e 24 hour sprinkle Active timolol (Timoptic) 0.5 % ophthalmic solution Administer 1 drop into the left eye 2 (two) times a day. 10 mL 6 5 Active Additional Information Patient not taking.Reported on 02/17/2025 timolol (Timoptic) 0.5 % ophthalmic solution Administer 1 drop into the left eye 2 times a day. 5 mL 12 5 Active Active Problems Problem Noted Date Diagnosed Date HNP (herniated nucleus pulposus), lumbar 022 Low back pain 09/02/2021 Overview (07/04/2023): Problem Code: M54.5; Problem Code Type: ICD-10; Neuralgia of left sciatic nerve 08/22/2021 Overview (07/04/2023): Problem Code: M54.32; Problem Code Type: ICD-10; Inflammation of sacroiliac joint 08/15/2021 Overview (07/04/2023): Problem Code: M46.1; Problem Code Type: ICD-10; Obesity with body mass index 30 or greater 08/15 Overview (07/04/2023): Problem Code: Z68.30; Problem Code Type: ICD-10; Hypertensive disorder 03/22/2021 Overview (07/04/2023): Problem Code: I10; Problem Code Type: ICD-10; Mixed hyperlipidemia 03/22/2021 Overview (07/04/2023): Problem Code: E78.2; Problem Code Type: ICD-10; Acquired hallux rigidus of left foot 10/06/2019 Acquired hallux rigidus of right foot 10/06/2019 Resolved Problems Problem Noted Date Diagnosed Date Resolved Date Syncope and collapse 03/22/2021 024 Overview (07/04/2023): Problem Code: R55; Problem Code Type: ICD-10; Encounters Date Type Department Care Team Description 02/17/2025 8:15 AM EDT Office Visit [facility] [address] [place] [address] Mikel Hyas MD Open angle with borderline findings, low risk, right eye (Primary Dx); Open angle with borderline findings, high risk, left; Myopia of both eyes; Regular astigmatism of both eyes; Presbyopia of both eyes 02/17/2025 8:05 AM EDT Ancillary Procedure [facility] [place] [facility] [address] [place] [address] 02/17/2025 Travel from Last 3 Months Immunizations Immunization Administration Dates Next Due Hep A, Adult 07/30/2018,01/28/2018 Influenza, injectable, quadr ivalent, preservative free 01/24/2023,02/08/2022,01/23/2020,2018 Family History Medical History Relation Name Comments Heart disease Father Heart disease Mother Thyroid disease Sister Relation Name Status Comments Father Mother Sister Social History Tobacco Use Types Packs/Day Years Used Date Smoking Tobacco: Never Passive Smoke Exposure: Never Smokeless Tobacco: Never Tobacco Cessation:Counseling Given: Not Answered Comments Unknown Sex and Gender Information Value Date Recorded Sex Assigned at Not on file Legal Sex Female 6:55 PM EDT Gender Identity Not on file Sexual Orientation Not on file Plan of Treatment Upcoming Encounters Date Type Department Care Team (Late st Contact Info) Description 08/18/2025 8:00 AM EDT Office Visit [facility] [address] [place] [address] Mikel Hays MD [address] [address] Health Maintenance Due Date Last Done Comments [facility]-Bone Density Scan 1957 [facility]-Depression Screening 1957 [facility]-Hepatitis C Screening 1955 [facility]-Medicare Annual Wellness (AWV) 1955 [facility]-/Child/Adol SDOH Screenings 1955 [facility]- SDOH Screenings 07/08/1975 [facility]-Adult SDOH Screenings 07/08/1975 CT Colonography 2002 Colonoscopy 2002 FIT-DNA 2002 FIT 2002 FOBT 2002 Sigmoidoscopy 2002 [facility]-Colorectal Cancer Screening 2002 ZOC-UMQAP-04 Vaccine ( season) 2024 02/26/2021, 06/12/2020, 05/15/2020 [facility]-Zoster Vaccines (2 of 2) 02/19/2025 12/25/2024 [facility]-Diabetes: Hemoglobin A1C 11/28/2025 11/28/2024, 10/18/2021 [facility]-Breast Cancer Screening 02/11/202601/22, 02/12/2024, 12/22/2022, Additional history exists [facility]-RSV Vaccine: 60+ Years or (1 - 1-dose 75+ series) 2032 [facility]-DTaP,Tdap,and Td Vaccines (2 - Td or Tdap) 12/25/2034 12/25/2024 [facility]-Hepatitis A Vaccines Aged Out 07/30/2018, 11/2017 No longer eligible based on patient's age to complete this topic [facility]-Pneumococcal Vaccine: 50+ Years Completed 12/25/2024 [facility]-Influenza Vaccine Completed 02/13/2025 , 02/07/2024, 01/24/2023, Additional history exists HPV Vaccines Aged Out No longer eligi ble based on patient's age to complete this topic [facility]-HIB Vaccines Aged Out No longer e ligible based on patient's age to complete this topic [facility]-IPV Vaccines Aged Out No longer e ligible based on patient's age to complete this topic [facility]-Rotavirus Vaccines Aged Out No lo nger eligible based on patient's age to complete this topic Procedures Procedure Name Priority Date/Time Associated Diagnosis Comments AUTOMATED VISUAL FIELD, EXTENDED - OU - BOTH EYES Routine 02/17/2025 10:09 AM EDT Open angle with borderline findings, low risk, right eye from Last 3 Months Results * Automated Visual Field, Extended - [...] glaucoma od; ? Os given reliability poor us Mikel Hays MD OPH VISUAL FIELD Edited Resu lt - Final from Last 3 Months Insurance MEDICARE Care Teams Motion Picture Camera Operator Relationship Specialty Start Date End Date Malaika Crenshaw PA [address] [place] [address] PCP - General 07/04/23
--- OUTSIDE RECORDS SUMMARY | 2025-02-23 12:54 | XMS_ITS | Clinical Summary ---
Author Organization [facility] Address [address] [place] [address] Care Team Providers Care Mercury Purifier Name Role Phone Tabitha Collins Primary Care Provider Allergies Active Allergy Reactions Criticality Noted Date Comments Ciprofloxacin Rash Medium 11/28/2024 Oxycodone-Acetaminophen GI Intolerance Low 11/12/19 Medications estradiol (MINIVELLE, VIVELLE-DOT) 0.05 MG/24HR patch Place 1 patch on the skin as directed by provider 1 (One) Time Per Week. Sunday 0 Active metoprolol succinate XL (TOPROL-XL) 50 MG 24 hr tablet Take 1 tablet by mouth Daily. 0 Active triamterene-hyd rochlorothiazid e (MAXZIDE-25) 37.5-25 MG per tablet Take 1 tablet by mouth Daily. 0 Active simvastatin (ZOCOR) 40 MG tablet Take 1 tablet by mouth Every Night. 0 Active lisinopril (PRINIVIL,ZESTR IL) 10 MG tablet Take 1 tablet by mouth Daily. Active cetirizine (zyrTEC) 10 MG tablet Take 1 tablet by mouth Daily. Active timolol (TIMOPTIC) 0.5 % ophthalmic solution Administer 1 drop into the left eye 2 (Two) Times a Day. Active desonide (DESOWEN) 0.05 % cream Apply 1 Application topically to the appropriate area as directed 2 (Two) Times a Day As Needed for Irritation. Active Wixela Inhub 250-50 MCG/ACT DISKUS Active Active Problems Problem Noted Date Diagnosed Date Herniated nucleus pulposus, L5-S1, left 11/13/19 HNP (herniated nucleus pulposus), lumbar 022 Acquired hallux rigidus of right foot 10/06/2019 Acquired hallux rigidus of left foot 10/06/2019 Encounters Date Type Department Care Team Description 02/17/2025 10:58 AM EDT - 02/17/2025 11:59 PM EDT Hospital Encounter [facility] [address] [place] [address] Tabitha Collins PA Encounter for screening mammogram for breast cancer Discharge Disposition: Home or Self Care 02/17/2025 Travel 02/06/2025 10:00 AM EDT Office Visit [facility] [address] [address] Darien Fleming MD S/P lumbar discectomy (Primary Dx); Lumbar disc herniation with radiculopathy 02/06/2025 Travel 12/24/2024 9:30 AM EDT Office Visit [facility] [address] [address] Randa Gauthier PA-C HNP (herniated nucleus pulposus), lumbar (Primary Dx) 12/24/2024 Travel 12/04/2024 9:42 AM EDT Anesthesia Event [facility] OR [address] [place] [address] Quincy Leon MD 12/04/2024 9:36 AM EDT - 12/04/2024 11:20 AM EDT Surgery [facility] OR [address] [place] [address] Darien Fleming MD LUMBAR DISCECTOMY REDO LEFT L5-S1 [54491 (CPT )] 12/04/2024 8:05 AM EDT - 12/04/2024 1:25 PM EDT Hospital Encounter [facility] OR [address] [place] [address] Darien Fleming MD Herniated nucleus pulposus, L5-S1, left (Primary Dx) Discharge Disposition: Home or Self Care 12/04/2024 Travel 11/28/2024 9:30 AM EDT Pre-Admission Testing [facility] T [address] [place] [address] Herniated nucleus pulposus, L5-S1, left 11/28/2024 Travel from Last 3 Months Family History Medical History Relation Name Comments Hypertension Maternal Grandfather Chema Hypertension Mother Oriana Breast cancer Neg Hx Ovarian cancer Neg Hx Relation Name Status Comments Maternal Grandfather Chema Mother Oriana Social History Tobacco Use Types Packs/Day Years [...] or training? Not on file Preferred Language Latvian 11/28/2024 Comments No Sex and Gender Information Value Date Recorded Sex Assigned at Female 11/05/2024 10:24 AM EDT Legal Sex Female 12:49 PM EDT Gender Identity Not on file Sexual Orientation Not on file Last Filed Vital Signs Vital Sign Reading Time Taken Comments Blood Pressure 140/83 12/04/2024 12:30 PM EDT Pulse 56 12/04/2024 12:30 PM EDT Temperature 36.5 C (97.7 F) 02/06/2025 10:08 AM EDT Respiratory Rate 18 12/04/2024 12:30 PM EDT Oxygen Saturation 96% 12/04/2024 12:30 PM EDT Inhaled Oxygen Concentration - - Weight 82.1 kg (181 lb 1.6 oz) 02/06/2025 10:08 AM EDT Height 157.5 cm (5' 2 ) 02/06/2025 10:08 AM EDT Body Mass Index 33.12 02/06/2025 10:08 AM EDT Plan of Treatment Health Maintenance Due Date Last Done Comments DXA SCAN 1955 DIABETIC EYE EXAM 07/08/1967 DIABETIC FOOT EXAM 07/08/1967 URINE MICROALBUMIN-CREATININ E RATIO (uACR) 07/08/1967 COLOGUARD 2002 COLON CANCER SCREENING 5 YEA R SIGMOIDOSCOPY 2002 COLONOSCOPY 2002 COL[address] CANCER SCREENING 2002 CT COLONOGRAPHY 2002 FECAL OCCULT BLOOD TEST 2002 FIT Testing (1 year) 2002 ANNUAL WELLNESS VISIT 10/06/2019 HEPATITIS C SCREENING 10/06/2019 COVID-19 Vaccine (3 - Modern a risk series) 03/26/2021 02/26/2021, 06/12/2020, 05/15/2020 ZOSTER VACCINE (2 of 2) 02/19/2025 12/25/2024 HEMOGLOBIN A1C 05/31/2025 11/28/2024, 10/18/2021 MAMMOGRAM 02/17/2027 02/17/2025, 01/22, 12/22/2022, Additional history exists TDAP/TD VACCINES (2 - Td or Tdap) 12/25/2034 025 Pneumococcal Vaccine 50+ Completed 12/25/2024 INFLUENZA VACCINE Completed 02/13/2025, , 02/07/2024, Additional history exists Medical Devices Implanted Type Area Amusement Park Entertainer Device Identifier Shelf Expiration Date Model / Serial / Lot Kt Seal Hemos Abs Floseal Matrx Fast/Prep 10ml - [id number] Implanted:Qty : 1 on 10/20/2021 by Darien Fleming MD at [facility] Implant Left: Spine Lumbar ASKEW [employer] [id number] / / Hemost Abs Surgifoam Sz100 8x12 10mm - [id number] Implanted:Qty : 1 on 10/20/2021 by Darien Fleming MD at [facility] Implant Left: Spine Lumbar ETHICON DIV OF J AND J 1974 / / Hemost Abs Surgifoam Sz100 8x12 10mm - [id number] Implanted:Qty : 1 on 12/04/2024 by Darien Fleming MD at [facility] Implant Left: Back ETHICON DIV [employer] J AND J [id number] 09/04/2028 1974 / / [id number] Wax Bone Hemo Lukens Sharpoint 2.5gm Wht - [id number] Implanted:Qty : 1 on 12/04/2024 by Darien Fleming MD at [facility] Implant Left: Back [employer] JOSEPH [id number] 09/25/2028 901 / / [id number] Kt Seal Hemos Abs Floseal Matrx 1.5/Fast/Prep 5000/Iu 5ml - [id number] Implanted:Qty : 1 on 12/04/2024 by Darien Fleming MD at [facility] Implant Left: Back [facility] [id number] 05/31/2026 [id number] / / [id number] Procedures Procedure Name Priority Date/Time Associated Diagnosis Comments MAMMO SCREENING DIGITAL TOMOSYNTHESIS BILATERAL W CAD Routine 02/17/2025 11:17 AM EDT Encounter for screening mammogram for breast cancer AMBRY GENETIC ASSESSMENT Routine 02/02/2025 8:54 AM EDT FL C ARM DURING SURGERY Routine 12/04/2024 10:49 AM EDT ANESTHESIA INTUBATION Routine 12/04/2024 9:53 AM EDT ME LAMNOTMY INCL W/DCMPRSN NRV ROOT 1 INTRSPC LUMBR 12/04/2024 9:27 AM EDT Herniated nucleus pulposus, L5-S1, left Special Needs C-ARM, FILMS ON PACS~ ECG 12-LEAD Routine 11/28/2024 10:15 AM EDT CBC (NO DIFF) Routine 11/28/2024 9:47 AM EDT POTASSIUM Routine 11/28/2024 9:47 AM EDT HEMOGLOBIN A1C Routine 11/28/2024 9:47 AM EDT MRSA SCREEN Routine 11/28/2024 9:45 AM EDT Herniated nucleus pulposus, L5-S1, left from Last 3 Months Results * Mammo Screening Digital Tomosynthesis Bilateral [...] other secondary signs of malignancy. Tabitha FRAIRE IMG MAMMOGRAPHY ORDERABLES Final Result * [facility] RISK [facility]ESSMENT QUESTIONNAIRE - , (02/02/2025 8:54 AM EDT) Tiera 2.8 [facility] GENETICS NCCN NCCN not met [facility] Comment:High Risk Cancer Ris k Assessment 02/02/2025 8:54 AM EDT Tabitha FRAIRE GENETIC TESTING Final Result [facility]
[address] [place] [address], [place] [phone] * FL C Arm During Surgery (12/04/2024 10:49 AM EDT) Narrative SYSTEMGENERATED, DOCUMENTATION - 12/04/2024 10:49 AM EDT This procedure was auto-finalized with no dictation required. Darien Fleming MD IMG FLUOROSCOPY ORDERABLES Fi nal Result * BH AN ETT AIRWAY (12/04/2024 9:53 AM EDT) Narrative Mark Lewis CRNA - 12/04/2024 9:53 AM EDT Mark Lewis CRNA 12/04/2024 9:53 AM Airway Reason: elective Date/Time: 12/04/2024 9:47 AM Airway not difficult General Information and Staff Patient location during procedure: OR XEROX MACHINE OPERATOR/CAA: Mark Lewis CRNA Indications and Patient Condition Indications for airway management: airway protection Preoxygenated: yes MILS not maintained throughout Mask difficulty assessment: 1 - vent by mask Final Airway Details Final airway type: endotracheal airway Successful airway: ETT Cuffed: yes Successful intubation technique: direct laryngoscopy Endotracheal tube insertion site: oral Blade: Milagros Blade size: 3 ETT size (mm): 7.0 Cormack-Lehane Classification: grade IIb - view of arytenoids or posterior of glottis only Placement verified by: chest auscultation and capnometry Measured from: lips ETT/EBT to lips (cm): 20 Number of attempts at approach: 1 Assessment: lips, teeth, and gum same as pre-op and atraumatic intubation Additional Comments Negative epigastric sounds, Breath sound equal bilaterally with symmetric chest rise and fall us Quincy Leon MD ANESTHESIA ORDERABLES Final Res ult * ECG 12 Lead (11/28/2024 10:15 AM EDT) QT Interval 392 ms ECG QTC Interval 429 ms ECG 11/28/2024 10:1 5 AM EDT 11/28/2024 1:27 PM EDT Narrative ECG - 11/28/2024 1:28 PM EDT Test Reason : Pre-Op / Pre-Procedure Blood Pressure : */* mmHG Vent. Rate : 72 BPM Atrial Rate : 72 BPM P-R Int : 150 ms QRS Dur : 76 ms QT Int : 392 ms P-R-T Axes : 28 21 39 degrees QTcB Int : 429 ms Normal sinus rhythm Low voltage QRS Borderline ECG When compared with ECG of 18-Oct-2021 15:49, No significant change was found Confirmed by JONO WASSERMAN MD ([id number]) on 11/28/2024 1:27:58 PM Referred By: Confirmed By: JONO WASSERMAN MD Procedure Note Jono Wasserman MD - 11/28/2024 Test Reason : Pre-Op / Pre-Procedure Blood Pressure : */* mmHG Vent. Rate : 72 BPM Atrial Rate : 72 BPM P-R Int : 150 ms QRS Dur : 76 ms QT Int : 392 ms P-R-T Axes : 28 21 39 degrees QTcB Int : 429 ms Normal sinus rhythm Low voltage QRS Borderline ECG When compared with ECG of 18-Oct-2021 15:49, No significant change was found Confirmed by JONO WASSERMAN MD ([id number]) on 11/28/2024 1:27:58 PM Referred By: Confirmed By: JONO WASSERMAN MD us Darien Fleming MD ECG ORDERABLES Final Result BH ECG * CBC (No Diff) (11/28/2024 9:47 AM EDT) WBC 8.47 3.40 - 10.80 10*3/mm3 11/28/2024 10:40 AM EDT [facility] RBC 4.37 3.77 - 5.28 10*6/mm3 11/28/2024 10:40 AM EDT [facility] Hemoglobin 13.1 12.0 - 15.9 g/dL 11/28/2024 10:40 AM EDT [facility] Hematocrit 40.1 34.0 - 46.6 % 11/28/2024 10:40 AM EDT [facility] MCV 91.8 79.0 - 97.0 fL 11/28/2024 10:40 AM EDT [facility] MCH 30.0 26.6 - 33.0 pg 11/28/2024 10:40 AM EDT [facility] MCHC 32.7 31.5 - 35.7 g/dL 11/28/2024 10:40 AM EDT [facility] RDW 13.2 12.3 - 15.4 % 11/28/2024 10:40 AM EDT [facility] RDW-SD 44.3 37.0 - 54.0 fl 11/28/2024 10:40 AM EDT [facility] MPV 9.6 6.0 - 12.0 fL 11/28/2024 10:40 AM EDT [facility] Platelets 309 140 - 450 10*3/mm3 11/28/2024 10:40 AM EDT [facility] Blood Venipuncture / Unknown 11/28/2024 9:47 AM EDT 11/28/2024 10:33 AM EDT us Darien Fleming MD LAB BLOOD ORDERABLES Final Re sult [facility]
[address] [place] [address], * Potassium (11/28/2024 9:47 AM EDT) Pathologist [facility] Potassium 4.0 3.5 - 5.2 mmol/L 11/28/2024 10:59 AM EDT [facility] Blood Venipuncture / Unknown 11/28/2024 9:47 AM EDT 11/28/2024 10:33 AM EDT Darien Fleming MD LAB BLOOD ORDERABLES Final Re sult [facility]
[address] [place] [address], * (ABNORMAL) Hemoglobin A1c (11/28/2024 9:47 AM EDT) Pathologist [facility] Hemoglobin A1C 5.98(H) 4.80 - 5.60 % 11/28/2024 10:50 AM EDT [facility] Blood Venipuncture / Unknown 11/28/2024 9:47 AM EDT 11/28/2024 10:33 AM EDT Narrative [facility] - 11/28/2024 10:50 AM EDT Hemoglobin A1C Ranges: Increased Risk for Diabetes 5.7% to 6.4% Diabetes >= 6.5% Diabetic Goal < 7.0% Darien Fleming MD LAB BLOOD ORDERABLES Final Re sult [facility]
[address] [place] [address], * MRSA Screen Culture (Outpatient) - Swab, Nares (11/28/2024 9:45 AM EDT) Pathologist [facility] MRSA Screen Cx No Methicillin Resistant Staphylococcus aureus isolated MAYRA 11/29/2024 10:45 AM EDT [facility] Swab Structure of anterior naris / Unknown Collection / Unknown 11/28/2024 9:45 AM EDT 11/28/2024 10:30 AM EDT Narrative [facility] - 11/29/2024 10:45 AM EDT The negative predictive value of this diagnostic test is high and should only be used to consider de-escalating anti-MRSA therapy. A positive result may indicate colonization with MRSA and must be correlated clinically. Marcela Hernandez PA-C MICROBIOLOGY - GEN ERAL ORDERABLES Final Result [facility]
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
--- OUTSIDE RECORDS SUMMARY | 2025-02-23 12:54 | XMS_ITS | Encounter Summary ---
Author Organization [facility] Address [address] [place] [address] Care Team Providers Care Wind Science And Planning Name Role Phone Malaika Crenshaw Primary Care Provider [phone] Encounter Details Date Type Department Care Team [...] Description 08/18/2025 8:00 AM EDT Office Visit [facility] [address] [place] [address] Mikel Hays MD [address] [address] documented as of this encounter Visit Diagnoses Not on filedocumented in this encounter Additional Health Concerns Assessment Noted Time A fall risk assessment has been complete d for the patient 02/17/2025 8:23 AM EDT A Body Mass Index follow-up plan has been documented for the patient 02/17/2025 10:18 AM EDT documented as of this encounter Care Teams Wind Science And Planning Relationship Specialty Start Date End Date Malaika Crenshaw PA [address] [place] [address] PCP - General 07/04/23 documented as of this encounter
== END 2025-02-23 23:59 | disposition home or self-care (01) ==
LOC: RAD 12:49
PROVIDERS: PCP Physician Assistant; Visit Provider Physician Assistant
DX: M81.0 Age-related osteoporosis without current pathological fracture (principal); Z78.0 Asymptomatic menopausal state
CPT/HCPCS: 77080